=== PATIENT | male | born 1975 | race African-American/Black ===

== ENCOUNTER 2016-08-18 01:43 | Emergency (ER) | payer SELFPAY ==
[~2016-08-18] VITALS: Ht 167.6 cm; Wt 81.6 kg
[2016-08-18] MEDS ORDERED: LITH8SOL6 PO (02:40)
[2016-08-18] MEDS ORDERED: RISP0.2517 PO (02:40)
[2016-08-18] MEDS ORDERED: TRAZ5POW MC (02:40)
[2016-08-18 03:29] VITALS: BP 211/135
--- OUTSIDE RECORDS SUMMARY | 2016-08-26 23:37 | XMS REPORT ---
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
--- OUTSIDE RECORDS SUMMARY | 2016-08-26 23:37 | XMS REPORT ---
Author Author DEVIN GOMEZ [facility] [employer] Address Unknown Phone Unavailable Care Team Providers Care Building Energy Consultant Name Role Phone DEVIN GOMEZ Unavailable Allergies No Known Allergies Problems Problem [...]
--- OUTSIDE RECORDS SUMMARY | 2016-08-26 23:37 | XMS REPORT ---
Author Author DEVIN GOMEZ [facility] [employer] Address Unknown Phone Unavailable Care Team Providers Care Hardening Machine Operator Helper Name Role Phone DEVIN GOMEZ Unavailable Allergies [...] examination for venereal disease V74.5 Active Medications Medication Code System Code Instructions Start Date End Date Status Dosage lithium NDC 0 300 mg orally Once a day with dinner Mar 30, 2014 3 capsule [place] Carbonate NDC [address]-24 300 MG Orally Three times a day 1 capsule Results No Known Results Summary Purpose [employer] Submission
--- OUTSIDE RECORDS SUMMARY | 2016-08-26 23:37 | XMS REPORT | Continuity of Care Document ---
Author Author [facility] Address Unknown Phone Unavailable Allergies Active Description Code Type Severity Reaction Onset Reported/Identified Relationship to Patient Clinical Status Yes codeine Drug Allergy N/A N/A 05/16/2008 Yes codeine Drug Allergy 05/16/2008 Yes lisinopril Drug Allergy 09/02/2008 Yes lisinopril Drug Allergy N/A N/A 08/05/2013 Medications Problems Date Dx Coded Attending Type Code Diagnosis Diagnosed By 11/02/2007 SUSI GODFREY DO 401.1 HYPERTENSION, BENIGN ESSENTIAL 11/02/2007 401.1 HYPERTENSION, BENIGN ESSENTIAL 11/02/2007 CHIKIS CHILDERS DO 401.1 HYPERTENSION, BENIGN ESSENTIAL 11/02/2007 SUSI GODFREY DO 401.1 HYPERTENSION, BENIGN ESSENTIAL 11/02/2007 SUSI GODFREY DO 401.1 HYPERTENSION, BENIGN ESSENTIAL 11/02/2007 401.1 HYPERTENSION, BENIGN ESSENTIAL 11/02/2007 401.1 HYPERTENSION, BENIGN ESSENTIAL 11/02/2007 401.1 HYPERTENSION, BENIGN ESSENTIAL 11/02/2007 401.1 HYPERTENSION, BENIGN ESSENTIAL 11/02/2007 401.1 HYPERTENSION, BENIGN ESSENTIAL 11/02/2007 MARILU AMANDA APRN 401.1 HYPERTENSION, BENIGN ESSENTIAL 11/02/2007 NAM PATTON APRN 401.1 HYPERTENSION, BENIGN ESSENTIAL 11/02/2007 NAM PATTON APRN 401.1 HYPERTENSION, BENIGN ESSENTIAL 11/02/2007 NAM PATTON APRN 401.1 HYPERTENSION, BENIGN ESSENTIAL 11/02/2007 RINA MINOR MD 401.1 HYPERTENSION, BENIGN ESSENTIAL 11/02/2007 [place] GRIGGS APRN 401.1 HYPERTENSION, BENIGN ESSENTIAL 11/02/2007 [place] GRIGGS APRN 401.1 HYPERTENSION, BENIGN ESSENTIAL 11/02/2007 [place] GRIGGS APRN 401.1 HYPERTENSION, BENIGN ESSENTIAL 05/16/2008 SUSI GODFREY DO 603.9 HYDROCELE UNSPECIFIED 05/16/2008 603.9 HYDROCELE UNSPECIFIED 05/16/2008 CHIKIS CHILDERS DO K 603.9 HYDROCELE UNSPECIFIED 05/16/2008 SUSI GODFREY DO F 603.9 HYDROCELE UNSPECIFIED 05/16/2008 SUSI GODFREY DO F 603.9 HYDROCELE UNSPECIFIED 05/16/2008 603.9 HYDROCELE UNSPECIFIED 05/16/2008 603.9 HYDROCELE UNSPECIFIED 05/16/2008 603.9 HYDROCELE UNSPECIFIED 05/16/2008 603.9 HYDROCELE UNSPECIFIED 05/16/2008 603.9 HYDROCELE UNSPECIFIED 05/16/2008 MARILU AMANDA APRN 603.9 HYDROCELE UNSPECIFIED 05/16/2008 NAM PATTON APRN 603.9 HYDROCELE UNSPECIFIED 05/16/2008 NAM PATTON APRN 603.9 HYDROCELE UNSPECIFIED 05/16/2008 NAM PATTON APRN 603.9 HYDROCELE UNSPECIFIED 05/16/2008 RINA MINOR MD 603.9 HYDROCELE UNSPECIFIED 05/16/2008 ANSONJOSELINE BRYANT, [place] 603.9 HYDROCELE UNSPECIFIED 05/16/2008 ANSONJOSELINE BRYANT, [place] 603.9 HYDROCELE UNSPECIFIED 05/16/2008 ANSON BRYANT [place] 603.9 HYDROCELE UNSPECIFIED 08/17/2008 SUSI GODFREY DO F 789.00 ABDOMINAL PAIN UNSPECIFIED SITE 08/17/2008 789.00 ABDOMINAL PAIN UNSPECIFIED SITE 08/17/2008 CHIKIS CHILDERS DO 789.00 ABDOMINAL PAIN UNSPECIFIED SITE 08/17/2008 SUSI GODFREY DO F 789.00 ABDOMINAL PAIN UNSPECIFIED SITE 08/17/2008 SUSI GODFREY DO F 789.00 ABDOMINAL PAIN UNSPECIFIED SITE 08/17/2008 789.00 ABDOMINAL PAIN UNSPECIFIED SITE 08/17/2008 789.00 ABDOMINAL PAIN UNSPECIFIED SITE 08/17/2008 789.00 ABDOMINAL PAIN UNSPECIFIED SITE 08/17/2008 789.00 ABDOMINAL PAIN UNSPECIFIED SITE 08/17/2008 789.00 ABDOMINAL PAIN UNSPECIFIED SITE 08/17/2008 MARILU AMANDA APRN 789.00 ABDOMINAL PAIN UNSPECIFIED SITE 08/17/2008 NAM PATTON APRN 789.00 ABDOMINAL PAIN UNSPECIFIED SITE 08/17/2008 NAM PATTON APRN 789.00 ABDOMINAL PAIN UNSPECIFIED SITE 08/17/2008 NAM PATTON APRN 789.00 ABDOMINAL PAIN UNSPECIFIED SITE 08/17/2008 RINA MINOR MD 789.00 ABDOMINAL PAIN UNSPECIFIED SITE 08/17/2008 ANSONORLANDO TREVIZO APRN 789.00 ABDOMINAL PAIN UNSPECIFIED SITE 08/17/2008 ANSONJESSICA TREVIZO APRNETTE 789.00 ABDOMINAL PAIN UNSPECIFIED SITE 08/17/2008 ANSON JESSICA BRYANTETTE 789.00 ABDOMINAL PAIN UNSPECIFIED SITE 12/07/2008 SUSI GODFREY DO 300.00 AN ANXIETY UNSPEC 12/07/2008 300.00 AN ANXIETY UNSPEC 12/07/2008 CHIKIS CHILDERS DO 300.00 AN ANXIETY UNSPEC 12/07/2008 SUSI GODFREY DO 300.00 AN ANXIETY UNSPEC 12/07/2008 SUSI GODFREY DO 300.00 AN ANXIETY UNSPEC 12/07/2008 300.00 AN ANXIETY UNSPEC 12/07/2008 300.00 AN ANXIETY UNSPEC 12/07/2008 300.00 AN ANXIETY UNSPEC 12/07/2008 300.00 AN ANXIETY UNSPEC 12/07/2008 300.00 AN ANXIETY UNSPEC 12/07/2008 MARILU AMANDA APRN 300.00 AN ANXIETY UNSPEC 12/07/2008 NAM PATTON APRN 300.00 AN ANXIETY UNSPEC 12/07/2008 NAM PATTON APRN 300.00 AN ANXIETY UNSPEC 12/07/2008 NAM PATTON APRN 300.00 AN ANXIETY UNSPEC 12/07/2008 RINA MINOR MD 300.00 AN ANXIETY UNSPEC 12/07/2008 [place] GRIGGS APRN 300.00 AN ANXIETY UNSPEC 12/07/2008 [place] GRIGGS APRN 300.00 AN ANXIETY UNSPEC 12/07/2008 [place] GRIGGS APRN 300.00 AN ANXIETY UNSPEC 01/19/2009 SUSI GODFREY DO 296.40 MO BIPOLAR MANIC UNSPECIFIED 01/19/2009 296.40 MO BIPOLAR MANIC UNSPECIFIED 01/19/2009 CHIKIS CHILDERS DO 296.40 MO BIPOLAR MANIC UNSPECIFIED 01/19/2009 SUSI GODFREY DO 296.40 MO BIPOLAR MANIC UNSPECIFIED 01/19/2009 SUSI GODFREY DO 296.40 MO BIPOLAR MANIC UNSPECIFIED 01/19/2009 296.40 MO BIPOLAR MANIC UNSPECIFIED 01/19/2009 296.40 MO BIPOLAR MANIC UNSPECIFIED 01/19/2009 296.40 MO BIPOLAR MANIC UNSPECIFIED 01/19/2009 296.40 MO BIPOLAR MANIC UNSPECIFIED 01/19/2009 296.40 MO BIPOLAR MANIC UNSPECIFIED 01/19/2009 MARILU AMANDA APRN 296.40 MO BIPOLAR MANIC UNSPECIFIED 01/19/2009 NAM PATTON APRN 296.40 MO BIPOLAR MANIC UNSPECIFIED 01/19/2009 NAM PATTON APRN 296.40 MO BIPOLAR MANIC UNSPECIFIED 01/19/2009 NAM PATTON APRN 296.40 MO BIPOLAR MANIC UNSPECIFIED 01/19/2009 RINA MINOR MD 296.40 MO BIPOLAR MANIC UNSPECIFIED 01/19/2009 [place] GRIGGS APRN 296.40 MO BIPOLAR MANIC UNSPECIFIED 01/19/2009 ANSON BRYANT [place] 296.40 MO BIPOLAR MANIC UNSPECIFIED 01/19/2009 ANSONJOSELINE BRYANT [place] 296.40 MO BIPOLAR MANIC UNSPECIFIED 02/07/2009 SUSI GODFREY DO 296.90 MO MOOD DIS NOS 02/07/2009 296.90 MO MOOD DIS NOS 02/07/2009 CHIKIS CHILDERS DO 296.90 MO MOOD DIS NOS 02/07/2009 SUSI GODFREY DO 296.90 MO MOOD DIS NOS 02/07/2009 SUSI GODFREY DO 296.90 MO MOOD DIS NOS 02/07/2009 296.90 MO MOOD DIS NOS 02/07/2009 296.90 MO MOOD DIS NOS 02/07/2009 296.90 MO MOOD DIS NOS 02/07/2009 296.90 MO MOOD DIS NOS 02/07/2009 296.90 MO MOOD DIS NOS 02/07/2009 MARILU AMANDA APRN 296.90 MO MOOD DIS NOS 02/07/2009 NAM PATTON APRN 296.90 MO MOOD DIS NOS 02/07/2009 NAM PATTON APRN 296.90 MO MOOD DIS NOS 02/07/2009 NAM PATTON APRN 296.90 MO MOOD DIS NOS 02/07/2009 RINA MINOR MD 296.90 MO MOOD DIS NOS 02/07/2009 ANSON BRICK WHEELER, [place] 296.90 MO MOOD DIS NOS 02/07/2009 ANSON BRICK WHEELER, [place] 296.90 MO MOOD DIS NOS 02/07/2009 ANSON BRICK WHEELER, [place] 296.90 MO MOOD DIS NOS 05/01/2009 SUSI GODFREY DO V58.69 MEDICATION HIGH RISK 05/01/2009 V58.69 MEDICATION HIGH RISK 05/01/2009 CHIKIS CHILDERS DO V58.69 MEDICATION HIGH RISK 05/01/2009 SUSI GODFREY DO V58.69 MEDICATION HIGH RISK 05/01/2009 SUSI GODFREY DO V58.69 MEDICATION HIGH RISK 05/01/2009 V58.69 MEDICATION HIGH RISK 05/01/2009 V58.69 MEDICATION HIGH RISK 05/01/2009 V58.69 MEDICATION HIGH RISK 05/01/2009 V58.69 MEDICATION HIGH RISK 05/01/2009 V58.69 MEDICATION HIGH RISK 05/01/2009 MARILU AMANDA APRN V58.69 MEDICATION HIGH RISK 05/01/2009 NAM PATTON APRN V58.69 MEDICATION HIGH RISK 05/01/2009 NAM PATTON APRN V58.69 MEDICATION HIGH RISK 05/01/2009 NAM PATTON APRN V58.69 MEDICATION HIGH RISK 05/01/2009 RINA MINOR MD V58.69 MEDICATION HIGH RISK 05/01/2009 ANSON BRICK WHEELER, [place] V58.69 MEDICATION HIGH RISK 05/01/2009 ANSON BRICK WHEELER, [place] V58.69 MEDICATION HIGH RISK 05/01/2009 ANSON BRICK WHEELER, [place] V58.69 MEDICATION HIGH RISK 11/18/2009 SUSI GODFREY DO 307.47 SI DYSSOMNIA NOS 11/18/2009 307.47 SI DYSSOMNIA NOS 11/18/2009 CHIKIS CHILDERS DO 307.47 SI DYSSOMNIA NOS 11/18/2009 SUSI GODFREY DO 307.47 SI DYSSOMNIA NOS 11/18/2009 SUSI GODFREY DO 307.47 SI DYSSOMNIA NOS 11/18/2009 307.47 SI DYSSOMNIA NOS 11/18/2009 307.47 SI DYSSOMNIA NOS 11/18/2009 307.47 SI DYSSOMNIA NOS 11/18/2009 307.47 SI DYSSOMNIA NOS 11/18/2009 307.47 SI DYSSOMNIA NOS 11/18/2009 MARILU AMANDA APRN 307.47 SI DYSSOMNIA NOS 11/18/2009 NAM PATTON APRN 307.47 SI DYSSOMNIA NOS 11/18/2009 NAM PATTON APRN 307.47 SI DYSSOMNIA NOS 11/18/2009 NAM PATTON APRN 307.47 SI DYSSOMNIA NOS 11/18/2009 RINA MINOR MD 307.47 SI DYSSOMNIA NOS 11/18/2009 ANSON BRICK WHEELER, [place] 307.47 SI DYSSOMNIA NOS 11/18/2009 ANSON BRICK WHEELER, [place] 307.47 SI DYSSOMNIA NOS 11/18/2009 ANSON BRICK WHEELER, [place] 307.47 SI DYSSOMNIA NOS 05/23/2010 SUSI GODFREY DO F 477.9 RHINITIS 05/23/2010 SUSI GODFREY DO F 785.6 LYMPH NODES ENLARGEMENT 05/23/2010 477.9 RHINITIS 05/23/2010 785.6 LYMPH NODES ENLARGEMENT 05/23/2010 CHILDERS CHIKIS LEAL K 477.9 RHINITIS 05/23/2010 CHILDERS DOCHIKIS K 785.6 LYMPH NODES ENLARGEMENT 05/23/2010 SUSI GODFREY DO F 477.9 RHINITIS 05/23/2010 SUSI GODFREY DO F 785.6 LYMPH NODES ENLARGEMENT 05/23/2010 SUSI GODFREY DO F 477.9 RHINITIS 05/23/2010 SUSI GODFREY DO F 785.6 LYMPH NODES ENLARGEMENT 05/23/2010 477.9 RHINITIS 05/23/2010 785.6 LYMPH NODES ENLARGEMENT 05/23/2010 477.9 RHINITIS 05/23/2010 785.6 LYMPH NODES ENLARGEMENT 05/23/2010 477.9 RHINITIS 05/23/2010 785.6 LYMPH NODES ENLARGEMENT 05/23/2010 477.9 RHINITIS 05/23/2010 785.6 LYMPH NODES ENLARGEMENT 05/23/2010 477.9 RHINITIS 05/23/2010 785.6 LYMPH NODES ENLARGEMENT 05/23/2010 MARILU AMANDA APRN T 477.9 RHINITIS 05/23/2010 MARILU AMANDA APRN T 785.6 LYMPH NODES ENLARGEMENT 05/23/2010 NAM PATTON APRN D 477.9 RHINITIS 05/23/2010 POOJA BRICK WHEELER, NAM D 785.6 LYMPH NODES ENLARGEMENT 05/23/2010 POOJA BRICK WHEELERNAM Simpson D 477.9 RHINITIS 05/23/2010 POOJA BRICK WHEELER, NAM D 785.6 LYMPH NODES ENLARGEMENT 05/23/2010 POOJA BRICK WHEELER, NAM D 477.9 RHINITIS 05/23/2010 NAM PATTON APRN D 785.6 LYMPH NODES ENLARGEMENT 05/23/2010 RINA MINOR MD 477.9 RHINITIS 05/23/2010 RINA MINOR MD 785.6 LYMPH NODES ENLARGEMENT 05/23/2010 ANSON BRICK WHEELER, [place] 477.9 RHINITIS 05/23/2010 ANSON BRICK WHEELER, [place] 785.6 LYMPH NODES ENLARGEMENT 05/23/2010 ANSON BRICK WHEELER, [place] 477.9 RHINITIS 05/23/2010 ANSON BRICK WHEELER, [place] 785.6 LYMPH NODES ENLARGEMENT 05/23/2010 ANSON BRICK WHEELER, [place] 477.9 RHINITIS 05/23/2010 ANSON BRICK WHEELER, [place] 785.6 LYMPH NODES ENLARGEMENT 05/28/2010 SUSI GODFREY DO 300.4 DYSTHYMIC DISORDER 05/28/2010 300.4 DYSTHYMIC DISORDER 05/28/2010 CHIKIS CHILDERS DO 300.4 DYSTHYMIC DISORDER 05/28/2010 SUSI GODFREY DO 300.4 DYSTHYMIC DISORDER 05/28/2010 SUSI GODFREY DO 300.4 DYSTHYMIC DISORDER 05/28/2010 300.4 DYSTHYMIC DISORDER 05/28/2010 300.4 DYSTHYMIC DISORDER 05/28/2010 300.4 DYSTHYMIC DISORDER 05/28/2010 300.4 DYSTHYMIC DISORDER 05/28/2010 300.4 DYSTHYMIC DISORDER 05/28/2010 MARILU AMANDA APRN 300.4 DYSTHYMIC DISORDER 05/28/2010 NAM PATTON APRN 300.4 DYSTHYMIC DISORDER 05/28/2010 NAM PATTON APRN 300.4 DYSTHYMIC DISORDER 05/28/2010 NAM PATTON APRN 300.4 DYSTHYMIC DISORDER 05/28/2010 RINA MINOR MD 300.4 DYSTHYMIC DISORDER 05/28/2010 [place] GRIGGS APRN 300.4 DYSTHYMIC DISORDER 05/28/2010 [place] GRIGGS APRN 300.4 DYSTHYMIC DISORDER 05/28/2010 [place] GRIGGS APRN 300.4 DYSTHYMIC DISORDER 06/28/2010 SUSI GODFREY DO 296.60 MO BIPOLAR I MIXED UNSPECIFIED 06/28/2010 296.60 MO BIPOLAR I MIXED UNSPECIFIED 06/28/2010 CHIKIS CHILDERS DO 296.60 MO BIPOLAR I MIXED UNSPECIFIED 06/28/2010 SUSI GODFREY DO F 296.60 MO BIPOLAR I MIXED UNSPECIFIED 06/28/2010 SUSI GODFREY DO F 296.60 MO BIPOLAR I MIXED UNSPECIFIED 06/28/2010 296.60 MO BIPOLAR I MIXED UNSPECIFIED 06/28/2010 296.60 MO BIPOLAR I MIXED UNSPECIFIED 06/28/2010 296.60 MO BIPOLAR I MIXED UNSPECIFIED 06/28/2010 296.60 MO BIPOLAR I MIXED UNSPECIFIED 06/28/2010 296.60 MO BIPOLAR I MIXED UNSPECIFIED 06/28/2010 MARILU AMANDA APRN 296.60 MO BIPOLAR I MIXED UNSPECIFIED 06/28/2010 NAM PATTON APRN 296.60 MO BIPOLAR I MIXED UNSPECIFIED 06/28/2010 NAM PATTON APRN 296.60 MO BIPOLAR I MIXED UNSPECIFIED 06/28/2010 NAM PATTON APRN 296.60 MO BIPOLAR I MIXED UNSPECIFIED 06/28/2010 RINA MINOR MD 296.60 MO BIPOLAR I MIXED UNSPECIFIED 06/28/2010 [place] GRIGGS APRN 296.60 MO BIPOLAR I MIXED UNSPECIFIED 06/28/2010 [place] GRIGGS APRN 296.60 MO BIPOLAR I MIXED UNSPECIFIED 06/28/2010 [place] GRIGGS APRN 296.60 MO BIPOLAR I MIXED UNSPECIFIED 09/21/2010 SUSI GODFREY DO F 296.50 MO BIPOLAR I DEPRESSED UNSPECIFIED 09/21/2010 296.50 MO BIPOLAR I DEPRESSED UNSPECIFIED 09/21/2010 CHIKIS CHILDERS DO 296.50 MO BIPOLAR I DEPRESSED UNSPECIFIED 09/21/2010 SUSI GODFREY DO 296.50 MO BIPOLAR I DEPRESSED UNSPECIFIED 09/21/2010 SUSI GODFREY DO 296.50 MO BIPOLAR I DEPRESSED UNSPECIFIED 09/21/2010 296.50 MO BIPOLAR I DEPRESSED UNSPECIFIED 09/21/2010 296.50 MO BIPOLAR I DEPRESSED UNSPECIFIED 09/21/2010 296.50 MO BIPOLAR I DEPRESSED UNSPECIFIED 09/21/2010 296.50 MO BIPOLAR I DEPRESSED UNSPECIFIED 09/21/2010 296.50 MO BIPOLAR I DEPRESSED UNSPECIFIED 09/21/2010 MARILU AMANDA APRN 296.50 MO BIPOLAR I DEPRESSED UNSPECIFIED 09/21/2010 NAM PATTON APRN 296.50 MO BIPOLAR I DEPRESSED UNSPECIFIED 09/21/2010 NAM PATTON APRN 296.50 MO BIPOLAR I DEPRESSED UNSPECIFIED 09/21/2010 NAM PATTON APRN 296.50 MO BIPOLAR I DEPRESSED UNSPECIFIED 09/21/2010 RINA MINOR MD 296.50 MO BIPOLAR I DEPRESSED UNSPECIFIED 09/21/2010 [place] GRIGGS APRN 296.50 MO BIPOLAR I DEPRESSED UNSPECIFIED 09/21/2010 [place] GRIGGS APRN 296.50 MO BIPOLAR I DEPRESSED UNSPECIFIED 09/21/2010 [place] GRIGGS APRN 296.50 MO BIPOLAR I DEPRESSED UNSPECIFIED 01/22/2011 SUSI GODFREY DO 462 PHARYNGITIS ACUTE 01/22/2011 462 PHARYNGITIS ACUTE 01/22/2011 CHIKIS CHILDERS DO 462 PHARYNGITIS ACUTE 01/22/2011 SUSI GODFREY DO 462 PHARYNGITIS ACUTE 01/22/2011 SUSI GODFREY DO 462 PHARYNGITIS ACUTE 01/22/2011 462 PHARYNGITIS ACUTE 01/22/2011 462 PHARYNGITIS ACUTE 01/22/2011 462 PHARYNGITIS ACUTE 01/22/2011 462 PHARYNGITIS ACUTE 01/22/2011 462 PHARYNGITIS ACUTE 01/22/2011 MARILU AMANDA APRN 462 PHARYNGITIS ACUTE 01/22/2011 NAM PATTON APRN 462 PHARYNGITIS ACUTE 01/22/2011 NAM PATTON APRN 462 PHARYNGITIS ACUTE 01/22/2011 NAM PATTON APRN 462 PHARYNGITIS ACUTE 01/22/2011 RINA MINOR MD 462 PHARYNGITIS ACUTE 01/22/2011 ANSON BRICK WHEELER, [place] 462 PHARYNGITIS ACUTE 01/22/2011 ANSON BRICK WHEELER, [place] 462 PHARYNGITIS ACUTE 01/22/2011 ANSON BRICK WHEELER, [place] 462 PHARYNGITIS ACUTE 06/21/2011 SUSI GODFREY DO 210.4 BENIGN NEOPLASM OF OTHER AND UNSPECIFIED PARTS OF MOUTH 06/21/2011 210.4 BENIGN NEOPLASM OF OTHER AND UNSPECIFIED PARTS OF MOUTH 06/21/2011 CHIKIS CHILDERS DO 210.4 BENIGN NEOPLASM OF OTHER AND UNSPECIFIED PARTS OF MOUTH 06/21/2011 SUSI GODFREY DO 210.4 BENIGN NEOPLASM OF OTHER AND UNSPECIFIED PARTS OF MOUTH 06/21/2011 SUSI GODFREY DO 210.4 BENIGN NEOPLASM OF OTHER AND UNSPECIFIED PARTS OF MOUTH 06/21/2011 210.4 BENIGN NEOPLASM OF OTHER AND UNSPECIFIED PARTS OF MOUTH 06/21/2011 210.4 BENIGN NEOPLASM OF OTHER AND UNSPECIFIED PARTS OF MOUTH 06/21/2011 210.4 BENIGN NEOPLASM OF OTHER AND UNSPECIFIED PARTS OF MOUTH 06/21/2011 210.4 BENIGN NEOPLASM OF OTHER AND UNSPECIFIED PARTS OF MOUTH 06/21/2011 210.4 BENIGN NEOPLASM OF OTHER AND UNSPECIFIED PARTS OF MOUTH 06/21/2011 MARILU AMANDA APRN 210.4 BENIGN NEOPLASM OF OTHER AND UNSPECIFIED PARTS OF MOUTH 06/21/2011 NAM PATTON APRN 210.4 BENIGN NEOPLASM OF OTHER AND UNSPECIFIED PARTS OF MOUTH 06/21/2011 NAM PATTON APRN 210.4 BENIGN NEOPLASM OF OTHER AND UNSPECIFIED PARTS OF MOUTH 06/21/2011 NAM PATTON APRN 210.4 BENIGN NEOPLASM OF OTHER AND UNSPECIFIED PARTS OF MOUTH 06/21/2011 RINA MINOR MD 210.4 BENIGN NEOPLASM OF OTHER AND UNSPECIFIED PARTS OF MOUTH 06/21/2011 ANSON BRICK WHEELER, [place] 210.4 BENIGN NEOPLASM OF OTHER AND UNSPECIFIED PARTS OF MOUTH 06/21/2011 ANSON BRICK WHEELER, [place] 210.4 BENIGN NEOPLASM OF OTHER AND UNSPECIFIED PARTS OF MOUTH 06/21/2011 ANSON BRICK WHEELER, [place] 210.4 BENIGN NEOPLASM OF OTHER AND UNSPECIFIED PARTS OF MOUTH 02/27/2012 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 02/27/2012 787.20 DYSPHAGIA UNSPECIFIED 02/27/2012 ALVARADO LEAL CHIKIS K 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 02/27/2012 CHILDERS DO, CHIKIS K 787.20 DYSPHAGIA UNSPECIFIED 02/27/2012 WERKAREN DO, SUSI F 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 02/27/2012 WERDER DO, SUSI F 787.20 DYSPHAGIA UNSPECIFIED 02/27/2012 WERDER DO, SUSI F 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 02/27/2012 WERDER DO, SUSI F 787.20 DYSPHAGIA UNSPECIFIED 02/27/2012 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 02/27/2012 787.20 DYSPHAGIA UNSPECIFIED 02/27/2012 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 02/27/2012 787.20 DYSPHAGIA UNSPECIFIED 02/27/2012 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 02/27/2012 787.20 DYSPHAGIA UNSPECIFIED 02/27/2012 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 02/27/2012 787.20 DYSPHAGIA UNSPECIFIED 02/27/2012 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 02/27/2012 787.20 DYSPHAGIA UNSPECIFIED 02/27/2012 MARILU AMANDA APRN 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 02/27/2012 MARILU AMANDA APRN 787.20 DYSPHAGIA UNSPECIFIED 02/27/2012 NAM PATTON APRN 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 02/27/2012 NAM PATTON APRN 787.20 DYSPHAGIA UNSPECIFIED 02/27/2012 NAM PATTON APRN 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 02/27/2012 NAM PATTON APRN 787.20 DYSPHAGIA UNSPECIFIED 02/27/2012 NAM PATTON APRN 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 02/27/2012 NAM PATTON APRN 787.20 DYSPHAGIA UNSPECIFIED 02/27/2012 RINA MINOR MD 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 02/27/2012 RINA MINOR MD 787.20 DYSPHAGIA UNSPECIFIED 02/27/2012 [place] GRIGGS APRN 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 02/27/2012 ANSON BRICK WHEELER, [place] 787.20 DYSPHAGIA UNSPECIFIED 02/27/2012 ANSON BRICK WHEELER, [place] 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 02/27/2012 ANSON BRICK WHEELER, [place] 787.20 DYSPHAGIA UNSPECIFIED 02/27/2012 ANSON BRICK WHEELER, [place] 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 02/27/2012 ANSON BRICK WHEELER, [place] 787.20 DYSPHAGIA UNSPECIFIED 03/20/2012 CHILDERS DO, CHIKIS K 315.39 SPEECH DELAY 03/20/2012 CHILDERS DO, CHIKIS K 786.09 SNORING 03/20/2012 WERDER DO, SUSI F 315.39 SPEECH DELAY 03/20/2012 WERDER DO, SUSI F 786.09 SNORING 03/20/2012 WERDER DO, SUSI F 315.39 SPEECH DELAY 03/20/2012 WERDER DO, SUSI F 786.09 SNORING 03/20/2012 315.39 SPEECH DELAY 03/20/2012 786.09 SNORING 03/20/2012 315.39 SPEECH DELAY 03/20/2012 786.09 SNORING 03/20/2012 315.39 SPEECH DELAY 03/20/2012 786.09 SNORING 03/20/2012 315.39 SPEECH DELAY 03/20/2012 786.09 SNORING 03/20/2012 315.39 SPEECH DELAY 03/20/2012 786.09 SNORING 03/20/2012 MARILU AMANDA APRN 315.39 SPEECH DELAY 03/20/2012 MARILU AMANDA APRN 786.09 SNORING 03/20/2012 NAM PATTON APRN 315.39 SPEECH DELAY 03/20/2012 NAM PATTON APRN 786.09 SNORING 03/20/2012 NAM PATTON APRN D 315.39 SPEECH DELAY 03/20/2012 NAM PATTON APRN D 786.09 SNORING 03/20/2012 NAM PATTON APRN D 315.39 SPEECH DELAY 03/20/2012 NAM PATTON APRN D 786.09 SNORING 03/20/2012 RINA MINOR MD 315.39 SPEECH DELAY 03/20/2012 RINA MINOR MD 786.09 SNORING 03/20/2012 [place] GRIGGS APRN 315.39 SPEECH DELAY 03/20/2012 ANSON BRICK WHEELER, [place] 786.09 SNORING 03/20/2012 ANSON BRICK WHEELER, [place] 315.39 SPEECH DELAY 03/20/2012 ANSON BRICK WHEELER, [place] 786.09 SNORING 03/20/2012 ANSON BRICK WHEELER, [place] 315.39 SPEECH DELAY 03/20/2012 ANSON BRICK WHEELER, [place] 786.09 SNORING 06/16/2012 296.66 BIPOLAR I DISORDER MOST RECENT EPISODE (OR CURRENT) MIXED IN FULL REMISSION 06/16/2012 296.66 BIPOLAR I DISORDER MOST RECENT EPISODE (OR CURRENT) MIXED IN FULL REMISSION 06/16/2012 296.66 BIPOLAR I DISORDER MOST RECENT EPISODE (OR CURRENT) MIXED IN FULL REMISSION 06/16/2012 296.66 BIPOLAR I DISORDER MOST RECENT EPISODE (OR CURRENT) MIXED IN FULL REMISSION 06/16/2012 296.66 BIPOLAR I DISORDER MOST RECENT EPISODE (OR CURRENT) MIXED IN FULL REMISSION 06/16/2012 MARILU AMANDA APRN 296.66 BIPOLAR I DISORDER MOST RECENT EPISODE ( OR CURRENT) MIXED IN FULL REMISSION 06/16/2012 NAM PATTON APRN 296.66 BIPOLAR I DISORDER MOST RECENT EPISODE (OR CURRENT) MIXED IN FULL REMISSION 06/16/2012 NAM PATTON APRN 296.66 BIPOLAR I DISORDER MOST RECENT EPISODE (OR CURRENT) MIXED IN FULL REMISSION 06/16/2012 NAM PATTON APRN 296.66 BIPOLAR I DISORDER MOST RECENT EPISODE (OR CURRENT) MIXED IN FULL REMISSION 06/16/2012 RINA MINOR MD 296.66 BIPOLAR I DISORDER MOST RECENT EPISODE (OR CURRENT) MIXED IN FULL REMISSION 06/16/2012 ORLANDO GRIGGS APRN 296.66 BIPOLAR I DISORDER MOST RECENT EPISODE ( OR CURRENT) MIXED IN FULL REMISSION 06/16/2012 OR[place]O GRIGGS APRN 296.66 BIPOLAR I DISORDER MOST RECENT EPISODE ( OR CURRENT) MIXED IN FULL REMISSION 06/16/2012 OR[place]O GRIGGS APRN 296.66 BIPOLAR I DISORDER MOST RECENT EPISODE ( OR CURRENT) MIXED IN FULL REMISSION 07/15/2012 301.0 PARANOID PERSONALITY DISORDER 07/15/2012 301.0 PARANOID PERSONALITY DISORDER 07/15/2012 MARILU AMANDA APRN 301.0 PARANOID PERSONALITY DISORDER 07/15/2012 NAM PATTON APRN 301.0 PARANOID PERSONALITY DISORDER 07/15/2012 NAM PATTON APRN 301.0 PARANOID PERSONALITY DISORDER 07/15/2012 NAM PATTON APRN 301.0 PARANOID PERSONALITY DISORDER 07/15/2012 RINA MINOR MD 301.0 PARANOID PERSONALITY DISORDER 07/15/2012 ANSON BRICK WHEELER, [place] 301.0 PARANOID PERSONALITY DISORDER 07/15/2012 ANSON BRICK WHEELER, [place] 301.0 PARANOID PERSONALITY DISORDER 07/15/2012 ANSON BRICK WHEELER, [place] 301.0 PARANOID PERSONALITY DISORDER 09/18/2012 MARILU AMANDA APRN V74.5 STD SCREEN 09/18/2012 NAM PATTON APRN V74.5 STD SCREEN 09/18/2012 NAM PATTON APRN V74.5 STD SCREEN 09/18/2012 NAM PATTON APRN V74.5 STD SCREEN 09/18/2012 RINA MINOR MD V74.5 STD SCREEN 09/18/2012 ANSON BRICK WHEELER, [place] V74.5 STD SCREEN 09/18/2012 [place] GRIGGS APRN V74.5 STD SCREEN 09/18/2012 [place] Simpson V74.5 STD SCREEN 09/24/2012 MARILU AMANDA APRN 719.45 PAIN IN JOINT INVOLVING PELVIC REGION AND THIGH 09/24/2012 NAM PATTON APRN 719.45 PAIN IN JOINT INVOLVING PELVIC [employer]ION AND THIGH 09/24/2012 NAM PATTON APRN 719.45 PAIN IN JOINT INVOLVING PELVIC [employer]ION AND THIGH 09/24/2012 NAM PATTON APRN 719.45 PAIN IN JOINT INVOLVING PELVIC [employer]ION AND THIGH 09/24/2012 RINA MINOR MD 719.45 PAIN IN JOINT INVOLVING PELVIC [employer]ION AND THIGH 09/24/2012 OR[place]O GRIGGS APRN 719.45 PAIN IN JOINT INVOLVING PELVIC [employer]ION AND THIGH 09/24/2012 [place] GRIGGS APRN 719.45 PAIN IN JOINT INVOLVING PELVIC [employer] AND THIGH 09/24/2012 [place] GRIGGS APRN 719.45 PAIN IN JOINT INVOLVING PELVIC [employer]ION AND THIGH 10/02/2012 MARILU AMANDA APRN 719.45 PAIN- HIP 10/02/2012 NAM PATTON APRN 719.45 PAIN- HIP 10/02/2012 NAM PATTON APRN 719.45 PAIN- HIP 10/02/2012 NAM PATTON APRN 719.45 PAIN- HIP 10/02/2012 RINA MINOR MD 719.45 PAIN- HIP 10/02/2012 [place] GRIGGS APRN 719.45 PAIN- HIP 10/02/2012 [place] GRIGGS APRN 719.45 PAIN- HIP 10/02/2012 [place] GRIGGS APRN 719.45 PAIN- HIP 06/21/2014 [place] GRIGGS APRN 296.64 MO BIPOLAR I MIXED W PSYCHOTIC BEHAVIOR Procedures Code Description Performed By Performed On DARRYL UP 02/27/2012 89635 ROUTINE VENIPUNCTURE 05/04/2012 69002 UA LONG DIP 05/04 45842 CBC 05/04/2012 78085 CMP 05/04/2012 [id number] GFR CALC (RESULT ONLY) 05/04/2012 19521 LITHIUM 2012 80003 TSH 05/04/2012 28441 ROUTINE VENIPUNCTURE 05/21/2012 29443 UA LONG DIP 05/21 06211 CREATININE 2012 [id number] GFR CALC (RESULT ONLY) 05/22/2012 54680 LITHIUM 2012 62836 PSYTX PT&/FAMILY 45 MINUTES 06/18/2012 68928 THERAPUTIC INJ SQ/IM 07/06/2012 J2930 SOLUMEDROL INJ 26669 PSYTX PT&/FAMILY 30 MINUTES 07/21/2012 18287 ROUTINE VENIPUNCTURE 08/19/2012 91844 PSYTX PT&/FAMILY 30 MINUTES 08/21/2012 34177 XRAY HIP RIGHT UNILATERAL MIN 2 VIEWS 09/24/2012 32396 ROUTINE VENIPUNCTURE 08/05/2013 [id number] GFR CALC (RESULT ONLY) 08/05/2013 18451 BMP 08/05/2013 95472 LITHIUM 2013 Results Encounters ACCT No. Visit Date/Time Discharge Status Pt. Type Provider Facility Loc./Unit Complaint [id number] 06/21/2014 13:37:00 06/21/2014 23: 59:59 CLS Outpatient [place] GRIGGS APRN [id number] 09/09/2013 12:03:00 09/09/2013 23: 59:59 CLS Outpatient JESSICA GRIGGS APRNETTE [id number] 09/09/2013 12:03:00 09/09/2013 23: 59:59 CLS Outpatient JESSICA GRIGGS APRNETTE [id number] 08/05/2013 13:47:00 08/05/2013 23: 59:59 CLS Outpatient RINA MINOR MD [id number] 03/16/2013 12:41:00 03/16/2013 23: 59:59 CLS Outpatient NAM PATTON APRN [id number] 12/08/2012 15:23:00 12/08/2012 23: 59:59 CLS Outpatient NAM PATTON APRN [id number] 12/08/2012 15:23:00 12/08/2012 23: 59:59 CLS Outpatient NAM PATTON APRN [id number] 09/24/2012 12:44:00 09/24/2012 23: 59:59 CLS Outpatient TREASURE FIELDSNMARILU [id number] 06/16/2012 11:04:00 06/16/2012 23: 59:59 CLS Outpatient [id number] 05/21/2012 16:25:00 05/21/2012 23: 59:59 CLS Outpatient SUSI GODFREY DO [id number] 05/04/2012 11:10:00 05/04/2012 23: 59:59 CLS Outpatient SUSI GODFREY DO [id number] 03/20/2012 10:06:00 03/20/2012 23: 59:59 CLS Outpatient ALVARADO LEAL CHIKIS Delia [id number] 02/27/2012 09:25:00 02/27/2012 23: 59:59 CLS Outpatient [id number] 01/02/2012 13:15:00 01/02/2012 23: 59:59 CLS Outpatient SUSI GODFREY DO [id number] 08/19/2012 14:13:00 Document Registration [id number] 07/15/2012 15:03:00 Document Registration [id number] 07/13/2012 14:55:00 Document Registration [id number] 07/06/2012 14:11:00 Document Registration
== END 2016-08-18 03:29 | disposition left against medical advice (07) ==
LOC: EDUNIT# 01:43 → ER 01:46
DX: F32.9 Major depressive disorder, single episode, unspecified (principal); Z53.21 Procedure and treatment not carried out due to patient leaving prior to being seen by health care provider
CPT/HCPCS: 99283

== ENCOUNTER 2017-03-21 02:08 | Inpatient (IN) | payer SELFPAY ==
[~2017-03-21] VITALS: Ht 167.6 cm; Wt 78.5 kg
[2017-03-21] VITALS (14 sets, daily range): BP systolic 108–125; BP diastolic 54–83
[~2017-03-21 02:08] MED LIST: LITH8SOL6 PO; RISP0.2517 PO; TRAZ5POW MC
--- OUTSIDE RECORDS SUMMARY | 2017-03-21 02:15 | XMS REPORT ---
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 970734495 Problem Hypertension, essential I10 Active 39341331 Problem Anxiety disorder, unspecified type F41.9 Active 126119009 Problem Mood disorder F39 Active 91497740 Problem Bipolar 1 disorder F31.9 Active 979122916 Problem Hyperprolactinemia E22.1 Active 428699558 Problem Mixed hyperlipidemia E78.2 Active 901086567 Problem Screening examination for venereal disease V74.5 Active 540181740 Problem Pain in joint, pelvic region and thigh 719.45 Active 543499830 Problem 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 Active 98138411 Problem Dysphagia, unspecified 787.20 Active 70013133 Problem 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.39 Active 579503563 Problem Other dyspnea and respiratory abnormalities 786.09 Active 633795662 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
--- OUTSIDE RECORDS SUMMARY | 2017-03-21 02:15 | XMS REPORT ---
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 857663716 Problem Hypertension, essential I10 Active 01182991 Problem Anxiety disorder, unspecified type F41.9 Active 784214409 Problem Mood disorder F39 Active 57777816 Problem Bipolar 1 disorder F31.9 Active 620422003 Problem Hyperprolactinemia E22.1 Active 149283826 Problem Mixed hyperlipidemia E78.2 Active 806032625 Problem Screening examination for venereal disease V74.5 Active 135202504 Problem Pain in joint, pelvic region and thigh 719.45 Active 432688912 Problem 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 Active 82385803 Problem Dysphagia, unspecified 787.20 Active 89095020 Problem 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.39 Active 911342294 Problem Other dyspnea and respiratory abnormalities 786.09 Active 773927597 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 13919680 ALLERGIES Substance Reaction Event Type Date Status Lisinopril angioedema Drug Allergy July, Active Codeine Sulfate hives Drug Allergy July, Active SOCIAL HISTORY Never Assessed PLAN OF CARE Activity Details Follow Up 4 Weeks Reason: VITAL SIGNS Height 65 in 2016-07-10 Weight 187.3 lbs 2016-07-10 Heart Rate 80 bpm 2016-07-10 Respiratory Rate 18 2016-07-10 BMI 31.16 kg/m2 2016-07-10 Blood pressure systolic 160 mmHg 2016-07-10 Blood pressure diastolic 102 mmHg 2016-07-10 MEDICATIONS Medication Instructions Dosage Frequency Start Date End Date Duration Status Risperdal 3 MG Orally Once a day 1 tablet 24h May, 30 days Active [place] Carbonate 300 MG Orally Three times a day 1 capsule 8h 30 days Active Trazodone HCl 100 MG Orally Once a day 1 tablet at bedtime 24h May, 30 days Active Inderal LA 80 MG 1 capsule 24h 30 Active Hydrochlorothiazide 25 MG 1 tablet 24h July, Active Norvasc 10 MG Orally Once a day 1 tablet 24h July, Active RESULTS Name Result Date Reference Range LITHIUM (ESKALITH(R)), SERUM 2016-07-10 Mears (Eskalith(R)), Serum 0.5 0.6-1.2 CMP 2016-07-10 Glucose, Serum 93 65-99 BUN 9 6-24 Creatinine, Serum 1.23 0.76-1.27 eGFR If NonAfricn Am 72 >59 eGFR If Africn Am 83 >59 BUN/Creatinine Ratio 7 9-20 Sodium, Serum 142 134-144 Potassium, Serum 4.0 3.5-5.2 Chloride, Serum 101 96-106 Carbon Dioxide, Total 26 18-29 Calcium, Serum 9.6 8.7-10.2 Protein, Total, Serum 6.8 6.0-8.5 Albumin, Serum 3.6 3.5-5.5 Globulin, Total 3.2 1.5-4.5 A/G Ratio 1.1 1.2-2.2 Bilirubin, Total <0.2 0.0-1.2 Alkaline Phosphatase, S 69 39-117 AST (SGOT) 17 0-40 ALT (SGPT) 15 0-44 CBC w/ MANUAL DIFF 2016-07-10 WBC 7.3 3.4-10.8 RBC 4.69 4.14-5.80 Hemoglobin 13.1 12.6-17.7 Hematocrit 39.8 37.5-51.0 MCV 85 79-97 MCH 27.9 26.6-33.0 MCHC 32.9 31.5-35.7 RDW 14.7 12.3-15.4 Platelets 305 150-379 Neutrophils 62 Lymphs 33 Monocytes 3 Eos 2 Basos 0 Neutrophils Absolute 4.5 1.4-7.0 Lymphs (Absolute) 2.4 0.7-3.1 Monocytes(Absolute) 0.2 0.1-0.9 Eos (Absolute Value) 0.1 0.0-0.4 Baso(Absolute) 0.0 0.0-0.2 Differential Comment Note: RBC Comment Note: Normal Platelet Comment Note: Adequate PROLACTIN 2016-07-10 Prolactin 40.2 4.0-15.2 TSH 2016-07-10 TSH 0.153 0.450-4.500 LIPID PANEL 2016-07-10 Cholesterol, Total 200 100-199 Triglycerides 211 0-149 HDL Cholesterol 54 >39 VLDL Cholesterol Milad 42 5-40 LDL Cholesterol Calc 104 0-99 PROCEDURES Procedure Date Ordered Result Body Site ASSAY THYROID STIM HORMONE July 10, 2016 COMPREHEN METABOLIC PANEL July 10, 2016 VENIPUNCT, ROUTINE* July 10, 2016 ASSAY OF PROLACTIN July 10, 2016 LIPID PANEL July 10, 2016 MANUAL CELL COUNT, EACH July 10, 2016 ASSAY OF LITHIUM July 10, 2016 IMMUNIZATIONS No Known Immunizations MEDICAL (GENERAL) HISTORY Type Description Date Medical History Hypertension Medical History Bipolar disorder Hospitalization History Denies any past psychiatric hospital
--- OUTSIDE RECORDS SUMMARY | 2017-03-21 02:16 | XMS REPORT ---
Author Author AMPARO Rivera Organization 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 Active 887208714 Problem Hypertension, essential I10 Active 14799648 Problem Anxiety disorder, unspecified type F41.9 Active 842045229 Problem Mood disorder F39 Active 73740755 Problem Bipolar 1 disorder F31.9 Active 575564465 Problem Hyperprolactinemia E22.1 Active 943933584 Problem Mixed hyperlipidemia E78.2 Active 392459959 Problem Screening examination for venereal disease V74.5 Active 608203378 Problem Pain in joint, pelvic region and thigh 719.45 Active 845144122 Problem 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 Active 06195338 Problem Dysphagia, unspecified 787.20 Active 75492754 Problem 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.39 Active 087642794 Problem Other dyspnea and respiratory abnormalities 786.09 Active 584116869 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 06864402 ALLERGIES Substance Reaction Event Type Date Status Lisinopril angioedema Drug Allergy May, Active Codeine Sulfate hives Drug Allergy May, Active SOCIAL HISTORY Never Assessed PLAN OF CARE Activity Details Follow Up 6 Weeks Reason: VITAL SIGNS Height 65 in 2016-05-08 Weight 180.0 lbs 2016-05-08 Heart Rate 96 bpm 2016-05-08 Respiratory Rate 20 2016-05-08 BMI 29.95 kg/m2 2016-05-08 Blood pressure systolic 150 mmHg 2016-05-08 Blood pressure diastolic 110 mmHg 2016-05-08 MEDICATIONS Medication Instructions Dosage Frequency Start Date End Date Duration Status Inderal LA 80 MG 1 capsule 24h 30 Active Hydrochlorothiazide 25 MG 1 tablet 24h July, Active Risperdal 3 MG Orally Once a day 1 tablet 24h May, 30 day(s) Active lithium 300 mg orally Once a day with dinner 3 capsule Mar, 30 Active [place] Carbonate 300 MG Orally Three times a day 1 capsule 8h 30 days Active Norvasc 10 MG Orally Once a day 1 tablet 24h July, Active Trazodone HCl 100 MG Orally Once a day 1 tablet at bedtime 24h May, 30 day(s) Active Risperidone 2 MG Orally Once a day qHS 1 tablet 30 Active RESULTS No Results PROCEDURES Procedure Date Ordered Result Body Site Psych diagnostic evaluation w/medical services, established patient May 08, 2016 IMMUNIZATIONS No Known Immunizations MEDICAL (GENERAL) HISTORY Type Description Date Medical History Hypertension Medical History Bipolar disorder Hospitalization History Denies any past psychiatric hospital
--- OUTSIDE RECORDS SUMMARY | 2017-03-21 02:16 | XMS REPORT ---
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 Active 781399313 Problem Hypertension, essential I10 Active 38022240 Problem Anxiety disorder, unspecified type F41.9 Active 584720024 Problem Mood disorder F39 Active 61791989 Problem Bipolar 1 disorder F31.9 Active 928275856 Problem Hyperprolactinemia E22.1 Active 622920836 Problem Mixed hyperlipidemia E78.2 Active 976084035 Problem Screening examination for venereal disease V74.5 Active 622476168 Problem Pain in joint, pelvic region and thigh 719.45 Active 782647911 Problem 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 Active 74151205 Problem Dysphagia, unspecified 787.20 Active 09934921 Problem 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
--- OUTSIDE RECORDS SUMMARY | 2017-03-21 02:17 | XMS REPORT | Continuity of Care Document ---
Author Author [facility] Address Unknown Phone Unavailable Allergies Active Description Code Type Severity Reaction Onset Reported/Identified Relationship to Patient Clinical Status Yes codeine Drug Allergy N/A N/A 05/16/2008 Yes codeine Drug Allergy 05/16/2008 Yes lisinopril Drug Allergy 09/02/2008 Yes lisinopril Drug Allergy N/A N/A 08/05/2013 Medications There is no data. Problems Date Dx Coded Attending Type Code [...] APRN 401.1 HYPERTENSION, BENIGN ESSENTIAL 11/02/2007 [place] RGIGGS APRN 401.1 HYPERTENSION, BENIGN ESSENTIAL 11/02/2007 JESSICA GRIGGS APRNETTE 401.1 HYPERTENSION, BENIGN ESSENTIAL 05/16/2008 WERDER DO, SUSI F 603.9 HYDROCELE UNSPECIFIED 05/16/2008 603.9 HYDROCELE UNSPECIFIED 05/16/2008 CHIKIS CHILDERS DO 603.9 HYDROCELE UNSPECIFIED 05/16/2008 SUSI GODFREY DO [...] BRYANT, [place] 603.9 HYDROCELE UNSPECIFIED 05/16/2008 ANSON ANNETTE, [place] 603.9 HYDROCELE UNSPECIFIED 05/16/2008 ANSONJOSELINE BRYANT, [place] 603.9 HYDROCELE UNSPECIFIED 08/17/2008 SUSI GODFREY DO 789.00 ABDOMINAL PAIN UNSPECIFIED SITE 08/17/2008 789.00 [...] APRN 789.00 ABDOMINAL PAIN UNSPECIFIED SITE 08/17/2008 ANSON JESSICA BRYANTETTE 789.00 ABDOMINAL PAIN UNSPECIFIED SITE 08/17/2008 ANSONORLANDO TREVIZO APRN 789.00 ABDOMINAL PAIN UNSPECIFIED SITE 12/07/2008 SUSI [...] APRN 296.40 MO BIPOLAR MANIC UNSPECIFIED 01/19/2009 [place] GRIGGS APRN 296.40 MO BIPOLAR MANIC UNSPECIFIED 01/19/2009 [place] GRIGGS APRN 296.40 MO BIPOLAR MANIC UNSPECIFIED 02/07/2009 SUSI [...] 296.90 MO MOOD DIS NOS 02/07/2009 ANSON BRYANT, [place] 296.90 MO MOOD DIS NOS 02/07/2009 ANSON HITCHER, [place] 296.90 MO MOOD DIS NOS 02/07/2009 ANSON ANNETTE, [place] 296.90 MO MOOD DIS NOS 05/01/2009 [...] MD V58.69 MEDICATION HIGH RISK 05/01/2009 ANSON HITCHER, [place] V58.69 MEDICATION HIGH RISK 05/01/2009 ANSON HITCHER, [place] V58.69 MEDICATION HIGH RISK 05/01/2009 ANSON BRYANT, [place] V58.69 MEDICATION HIGH RISK 11/18/2009 USSI GODFREY DO 307.47 SI DYSSOMNIA NOS 11/18/2009 [...] MD 307.47 SI DYSSOMNIA NOS 11/18/2009 ANSON HITCHER, [place] 307.47 SI DYSSOMNIA NOS 11/18/2009 ANSON HITCHER, [place] 307.47 SI DYSSOMNIA NOS 11/18/2009 ANSON ANNETTE, [place] 307.47 SI DYSSOMNIA NOS 05/23/2010 SUSI GODFREY DO F 477.9 RHINITIS 05/23/2010 SUSI GODFREY DO F 785.6 LYMPH NODES ENLARGEMENT 05/23/2010 477.9 RHINITIS 05/23/2010 785.6 LYMPH NODES ENLARGEMENT 05/23/2010 CHIKIS CHILDERS DO K 477.9 RHINITIS 05/23/2010 CHILDERS CHIKIS LEAL K 785.6 LYMPH NODES ENLARGEMENT 05/23/2010 SUSI [...] LYMPH NODES ENLARGEMENT 05/23/2010 MARILU AMANDA APRN 477.9 RHINITIS 05/23/2010 MARILU AMANDA APRN 785.6 LYMPH NODES ENLARGEMENT 05/23/2010 NAM PATTON APRN 477.9 RHINITIS 05/23/2010 POOJA HITCHER, NAM D 785.6 LYMPH NODES ENLARGEMENT 05/23/2010 NAM PATTON APRN 477.9 RHINITIS 05/23/2010 POOJA HITCHER, NAM D 785.6 LYMPH NODES ENLARGEMENT 05/23/2010 POOJA HITCHER, NAM D 477.9 RHINITIS 05/23/2010 NAM PATTON APRN D 785.6 LYMPH NODES ENLARGEMENT 05/23/2010 RINA MINOR MD 477.9 RHINITIS 05/23/2010 MILY STOCKTON, RINA 785.6 LYMPH NODES ENLARGEMENT 05/23/2010 ANSON HITCHER, [place] 477.9 RHINITIS 05/23/2010 ANSON HITCHER, [place] 785.6 LYMPH NODES ENLARGEMENT 05/23/2010 ANSON HITCHER, [place] 477.9 RHINITIS 05/23/2010 ANSON HITCHER, [place] 785.6 LYMPH NODES ENLARGEMENT 05/23/2010 ANSON HITCHER, [place] 477.9 RHINITIS 05/23/2010 ANSON HITCHER, [place] 785.6 LYMPH NODES ENLARGEMENT 05/28/2010 SUSI [...] MO BIPOLAR I DEPRESSED UNSPECIFIED 09/21/2010 [place] RGIGGS APRN 296.50 MO BIPOLAR I DEPRESSED UNSPECIFIED [...] MINOR MD 462 PHARYNGITIS ACUTE 01/22/2011 ANSON HITCHER, [place] 462 PHARYNGITIS ACUTE 01/22/2011 ANSON HITCHER, [place] 462 PHARYNGITIS ACUTE 01/22/2011 ANSON HITCHER, [place] 462 PHARYNGITIS ACUTE 06/21/2011 SUSI GODFREY [...] AND UNSPECIFIED PARTS OF MOUTH 06/21/2011 ANSON HITCHER, [place] 210.4 BENIGN NEOPLASM OF OTHER AND UNSPECIFIED PARTS OF MOUTH 06/21/2011 ANSON HITCHER, [place] 210.4 BENIGN NEOPLASM OF OTHER AND UNSPECIFIED PARTS OF MOUTH 06/21/2011 [place] GRIGGS APRN 210.4 BENIGN NEOPLASM OF OTHER AND UNSPECIFIED PARTS OF MOUTH 02/27/2012 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 02/27/2012 787.20 DYSPHAGIA UNSPECIFIED 02/27/2012 CHILDERS DO CHIKIS K 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 02/27/2012 CHILDERS DO, CHIKIS K 787.20 DYSPHAGIA UNSPECIFIED 02/27/2012 WERDER DO SUSI F 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 [...] 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 02/27/2012 ANSON HITCHER, [place] 787.20 DYSPHAGIA UNSPECIFIED 02/27/2012 ANSON HITCHER, [place] 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 02/27/2012 ANSON HITCHER, [place] 787.20 DYSPHAGIA UNSPECIFIED 02/27/2012 ANSON HITCHER, [place] 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 02/27/2012 ANSON HITCHER, [place] 787.20 DYSPHAGIA UNSPECIFIED 03/20/2012 CHILDERS DO, [...] 03/20/2012 NAM PATTON APRN 786.09 SNORING 03/20/2012 RINA MINOR MD 315.39 SPEECH DELAY 03/20/2012 RINA MINOR MD 786.09 SNORING 03/20/2012 [place] GRIGGS APRN 315.39 SPEECH DELAY 03/20/2012 ANSON HITCHER, [place] 786.09 SNORING 03/20/2012 ANSON HITCHER, [place] 315.39 SPEECH DELAY 03/20/2012 ANSON HITCHER, [place] 786.09 SNORING 03/20/2012 ANSON HITCHER, [place] 315.39 SPEECH DELAY 03/20/2012 ANSON HITCHER, [place] 786.09 SNORING 06/16/2012 296.66 BIPOLAR I [...] EPISODE (OR CURRENT) MIXED IN FULL REMISSION 07/15/2012 301.0 PARANOID PERSONALITY DISORDER 07/15/2012 301.0 PARANOID PERSONALITY DISORDER 07/15/2012 MARILU AMANDA APRN 301.0 PARANOID PERSONALITY DISORDER 07/15/2012 NAM PATTON APRN 301.0 PARANOID PERSONALITY DISORDER 07/15/2012 NAM PATTON APRN 301.0 PARANOID PERSONALITY DISORDER 07/15/2012 NAM PATTON APRN 301.0 PARANOID PERSONALITY DISORDER 07/15/2012 RINA MINOR MD 301.0 PARANOID PERSONALITY DISORDER 07/15/2012 ANSON HITCHER, [place] 301.0 PARANOID PERSONALITY DISORDER 07/15/2012 ANSON HITCHER, [place] 301.0 PARANOID PERSONALITY DISORDER 07/15/2012 ANSON ANNETTE, [place] 301.0 PARANOID PERSONALITY DISORDER 09/18/2012 MARILU AMANDA APRN V74.5 STD SCREEN 09/18/2012 NAM PATTON APRN V74.5 STD SCREEN 09/18/2012 NAM PATTON APRN V74.5 STD SCREEN 09/18/2012 NAM PATTON APRN V74.5 STD SCREEN 09/18/2012 RINA MINOR MD V74.5 STD SCREEN 09/18/2012 ANSON HITCHER, [place] V74.5 STD SCREEN 09/18/2012 ANSONJESSICA TREVIZO APRNETTE V74.5 STD SCREEN 09/18/2012 ANSONJOSELINE BRYANT, [place] V74.5 STD SCREEN 09/24/2012 MARILU AMANDA APRN [...] Performed By Performed On DARRYL UP 02/27/2012 89385 ROUTINE VENIPUNCTURE 05/04/2012 59710 UA LONG DIP 05/04/2012 68961 CBC 05/04/2012 06717 CMP 05/04/2012 [id number] GFR CALC (RESULT ONLY) 05/04/2012 54533 LITHIUM 05/04/2012 16234 TSH 05/04/2012 12912 ROUTINE VENIPUNCTURE 05/21/2012 56190 UA LONG DIP 05/21/2012 12192 CREATININE 05/22/2012 0899392 GFR CALC (RESULT ONLY) 05/22/2012 06575 LITHIUM 05/22/2012 67904 PSYTX PT&/FAMILY 45 MINUTES 06/18/2012 19363 THERAPUTIC INJ SQ/IM 07/06/2012 J2930 SOLUMEDROL INJ 07/06/2012 96670 PSYTX PT&/FAMILY 30 MINUTES 07/21/2012 39579 ROUTINE VENIPUNCTURE 08/19/2012 74553 PSYTX PT&/FAMILY 30 MINUTES 08/21/2012 44745 XRAY HIP RIGHT UNILATERAL MIN 2 VIEWS 09/24/2012 92825 ROUTINE VENIPUNCTURE 08/05/2013 6005749 GFR CALC (RESULT ONLY) 08/05/2013 05285 BMP 08/05/2013 63677 LITHIUM 08/05/2013 Results There is no data. Encounters ACCT No. Visit Date/Time Discharge Status Pt. Type Provider Facility Loc./Unit Complaint [id number] 06/21/2014 13:37:00 06/21/2014 23:59:59 CLS Outpatient [place] GRIGGS APRN [id number] 09/09/2013 12:03:00 09/09/2013 23:59:59 CLS Outpatient JESSICA GRIGGS APRNETTE [id number] 09/09/2013 12:03:00 09/09/2013 23:59:59 CLS Outpatient JESSICA GRIGGS APRNETTE [id number] 08/05/2013 13:47:00 08/05/2013 23:59:59 CLS Outpatient RINA MINOR MD [id number] 03/16/2013 12:41:00 03/16/2013 23:59:59 CLS Outpatient NAM PATTON APRN [id number] 12/08/2012 15:23:00 12/08/2012 23:59:59 CLS Outpatient NAM PATTON APRN [id number] 12/08/2012 15:23:00 12/08/2012 23:59:59 CLS Outpatient NAM PATTON APRN [id number] 09/24/2012 12:44:00 09/24/2012 23:59:59 CLS Outpatient MARILU AMANDA APRN [id number] 06/16/2012 11:04:00 06/16/2012 23:59:59 CLS Outpatient [id number] 05/21/2012 16:25:00 05/21/2012 23:59:59 CLS Outpatient SUSI GODFREY DO [id number] 05/04/2012 11:10:00 05/04/2012 23:59:59 CLS Outpatient GRIFFINSUSI JONES DO [id number] 03/20/2012 10:06:00 03/20/2012 23:59:59 CLS Outpatient CHIKIS CHILDERS DO [id number] 02/27/2012 09:25:00 02/27/2012 23:59:59 CLS Outpatient [id number] 01/02/2012 13:15:00 01/02/2012 23:59:59 CLS Outpatient GRIFFINSUSI JONES DO [id number] 08/19/2012 14:13:00 Document Registration [id number] 07/15/2012 15:03:00 Document Registration [id number] 07/13/2012 14:55:00 Document Registration [id number] 07/06/2012 14:11:00 Document Registration
[2017-03-21] MEDS ORDERED: ACTIVATED CHARCOAL/SORBITOL 50 G/240 ML BTL ONE (02:21)
[2017-03-21] MEDS ORDERED: NS IV 1000 ML 1,000 ML IV ONE ×2 (02:27→04:32)
[2017-03-21] MEDS ORDERED: ONDANSETRON 4 MG/2 ML (SDV) Z0FRAN ONE (02:32)
[2017-03-21 02:48] LABS: BASOPHILS % (AUTO) 0 % (0-10); EOSINOPHILS # (AUTO) 0.2 10^3/uL (0.0-0.3); EOSINOPHILS % (AUTO) 2 % (0-10); HEMATOCRIT 43 % (40-54); HEMOGLOBIN 14.5 G/DL (13.3-17.7); LYMPHOCYTES # (AUTO) 2.7 X 10^3 (1.0-4.0); LYMPHOCYTES % (AUTO) 25 % (12-44); MEAN CORPUSCULAR HEMOGLOBIN 29 PG (25-34); MEAN CORPUSCULAR HGB CONC 34 G/DL (32-36); MEAN CORPUSCULAR VOLUME 85 FL (80-99); MEAN PLATELET VOLUME 9.2 FL (7.4-10.4); MONOCYTES # (AUTO) 0.9 X 10^3 (0.0-1.0); MONOCYTES % (AUTO) 8 % (0-12); NEUTROPHILS # (AUTO) 7.1 X 10^3 (1.8-7.8); NEUTROPHILS % (AUTO) 65 % (42-75); PLATELET COUNT 272 10^3/uL (130-400); RED BLOOD COUNT 5.06 10^6/uL (4.35-5.85); RED CELL DISTRIBUTION WIDTH 14.5 % (10.0-14.5); WHITE BLOOD COUNT 10.9 10^3/uL (4.3-11.0)
[2017-03-21 03:11] LABS: ALANINE AMINOTRANSFERASE 12 U/L (0-55); ALBUMIN 3.6 GM/DL (3.2-4.5); ALKALINE PHOSPHATASE 70 U/L (40-136); BILIRUBIN,TOTAL 0.4 MG/DL (0.1-1.0); BUN/CREATININE RATIO 10; CALCIUM 9.3 MG/DL (8.5-10.1); CARBON DIOXIDE 24 MMOL/L (21-32); CHLORIDE 103 MMOL/L (98-107); CREATININE SERUM 1.22 MG/DL (0.60-1.30); GFR ESTIMATED > 60; GLUCOSE 126 MG/DL (70-105); MAGNESIUM 2.5 MG/DL (1.8-2.4); POTASSIUM 3.9 MMOL/L (3.6-5.0); SALICYLATE < 5.0 MG/DL (5.0-20.0); SODIUM 140 MMOL/L (135-145); TOTAL PROTEIN 7.1 GM/DL (6.4-8.2)
[2017-03-21 03:13] LABS: ACETAMINOPHEN < 10 UG/ML (10-30)
[2017-03-21] MEDS ORDERED: ASPIRIN 81 MG CHEW (CHILDREN'S ASA) PO ONE (03:30)
[2017-03-21 03:31] LABS: TSH (THYROID ANALYZER) 0.59 UIU/ML (0.35-4.94)
[2017-03-21 03:52] LABS: BILIRUBIN,URINE NEGATIVE (NEGATIVE); CLARITY,URINE CLEAR; COLOR,URINE YELLOW; GLUCOSE, URINE (UA) NEGATIVE (NEGATIVE); KETONES,URINE NEGATIVE (NEGATIVE); LEUKOCYTE ESTERASE ,URINE NEGATIVE (NEGATIVE); NITRITE,URINE NEGATIVE (NEGATIVE); PH,URINE 6.5 (5-9); PROTEIN,URINE NEGATIVE (NEGATIVE); UROBILINOGEN,URINE NORMAL (NORMAL)
[2017-03-21 04:02] LABS: BACTERIA,URINE NEGATIVE /HPF
--- NOTE | 2017-03-21 04:02 | ED Psychosocial ---
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 HE STATES HE TOOK AN UNKNOWN AMOUNT OF LITHIUM, TRAZADONE, RISPERDAL, INDERAL, AND METOPROLOL. HE STATES HE HAS BEEN DEPRESSED R/T HE IS HOMELESS AND HAS "NO ONE" . PT IS ALERT BUT DROWSY AT THIS TIME. HE AWAKENS TO VERBAL STIMULI. Source: patient Exam Limitations: clinical condition History of Present Illness Time seen by provider: 02:11 Initial Comments This 41-year-old gentleman presents to the emergency room in ambulatory status with report of overdose on multiple medications with suicidal intent. He reports he took a handful of lithium, Risperdal, trazodone, Inderal, and possibly one other new or medication in unknown quantities. He is rather somnolent but otherwise asymptomatic. He reports feeling very lonely as he is from [place] but is living here by himself at present. He does receive behavioral health care through the [facility]. Richard Thomas is his primary care provider. Patient denies any illicit drug use or alcohol use. ST elevation in V2 was noted on EKG. Patient has no chest pain at present but did have chest pain a few days ago. Allergies and Home Medications Allergies Coded Allergies: shellfish derived (Verified Allergy, Unknown, 08/18/16) Home Medications Honor Citrate 8 Meq/5 Ml Solution, 8 MEQ PO, (Reported) Risperidone 0.25 Mg Tablet, 0.25 MG PO, (Reported) Trazodone HCl 5 Gm Powder, 5 GM MC, (Reported) Constitutional: see HPI EENTM: no symptoms reported Respiratory: no symptoms reported Cardiovascular: see HPI Gastrointestinal: no symptoms reported Genitourinary: no symptoms reported Musculoskeletal: no symptoms reported Skin: no symptoms reported Psychiatric/Neurological: See HPI Past Owuyhoo-Azphcz-Zqvaus Hx Patient Social History Alcohol Use: Denies Use Recreational Drug Use: No Smoking Status: Never a Smoker 2nd Hand Smoke Exposure: No Recent Foreign Travel: No Contact w/Someone Who Travel: No Recent Infectious Disease Expo: No Recent Hopitalizations: No Seasonal Allergies Seasonal Allergies: No Surgeries History of Surgeries: No Respiratory History of Respiratory Disorde: No Cardiovascular History of Cardiac Disorders: Yes Cardiac Disorders: Hypertension Neurological History of Neurological Disord: No Reproductive System Hx Reproductive Disorders: No Genitourinary History of Genitourinary Disor: No Gastrointestinal History of Gastrointestinal Di: No Musculoskeletal History of Musculoskeletal Dis: No Endocrine History of Endocrine Disorders: No HEENT History of HEENT Disorders: No Cancer History of Cancer: No Psychosocial History of Psychiatric Problem: Yes Behavioral Health Disorders: Bipolar, Depression Integumentary History of Skin or Integumenta: No Blood Transfusions History of Blood Disorders: No Physical Exam Vital Signs Vital Sign - Last 12Hours 03/21/17 02:20 Temp 97.2 Pulse 75 Resp 11 B/P (MAP) 159/87 (111) Pulse Ox 99 O2 Delivery Room Air Capillary Refill : Less Than 3 Seconds General Appearance: WD/WN, no apparent distress, other (hypersomnolent) HEENT: PERRL/EOMI, normal ENT inspection, pharynx normal Neck: normal inspection Respiratory: lungs clear, normal breath sounds, no respiratory distress, no accessory muscle use Cardiovascular: regular rate, rhythm, no edema, no murmur Gastrointestinal: normal bowel sounds, non tender, soft Extremities: normal inspection, no pedal edema Neurologic/Psychiatric: biztalk developer II-XII nml as tested, no motor/sensory deficits, oriented x 3, other (hypersomnolent, admits to suicidal intent with overdose) Appearance/Memory: appropriate appearance Behavior/Eye Contact: cooperative, other (dulled mentation and speech) Thoughts/Hallucinations: no apparent hallucination Skin: normal color, warm/dry Progress/Results/Core Measures Results/Orders Lab Results Laboratory Tests Test 03/21/17 02:30 03/21/17 03:47 Range/Units White Blood Count 10.9 4.3-11.0 10^3/uL Red Blood Count 5.06 4.35-5.85 10^6/uL Hemoglobin 14.5 13.3-17.7 G/DL Hematocrit 43 40-54 % Mean Corpuscular Volume 85 80-99 FL Mean Corpuscular Hemoglobin 29 25-34 PG Mean Corpuscular Hemoglobin Concent 34 32-36 G/DL Red Cell Distribution Width 14.5 10.0-14.5 % Platelet Count 272 130-400 10^3/uL Mean Platelet Volume 9.2 7.4-10.4 FL Neutrophils (%) (Auto) 65 42-75 % Lymphocytes (%) (Auto) 25 12-44 % Monocytes (%) (Auto) 8 0-12 % Eosinophils (%) (Auto) 2 0-10 % Basophils (%) (Auto) 0 0-10 % Neutrophils # (Auto) 7.1 1.8-7.8 X 10^3 Lymphocytes # (Auto) 2.7 1.0-4.0 X 10^3 Monocytes # (Auto) 0.9 0.0-1.0 X 10^3 Eosinophils # (Auto) 0.2 0.0-0.3 10^3/uL Basophils # (Auto) 0.0 0.0-0.1 10^3/uL Sodium Level 140 135-145 MMOL/L Potassium Level 3.9 3.6-5.0 MMOL/L Chloride Level 103 98-107 MMOL/L Carbon Dioxide Level 24 21-32 MMOL/L Anion Gap 13 5-14 MMOL/L Blood Urea Nitrogen 12 7-18 MG/DL Creatinine 1.22 0.60-1.30 MG/DL Estimat Glomerular Filtration Rate > 60 BUN/Creatinine Ratio 10 Glucose Level 126 H 70-105 MG/DL Calcium Level 9.3 8.5-10.1 MG/DL Magnesium Level 2.5 H 1.8-2.4 MG/DL Total Bilirubin 0.4 0.1-1.0 MG/DL Aspartate Amino Transf (AST/SGOT) 16 5-34 U/L Alanine Aminotransferase (ALT/SGPT) 12 0-55 U/L Alkaline Phosphatase 70 40-136 U/L Troponin I < 0.30 <0.30 NG/ML Total Protein 7.1 6.4-8.2 GM/DL Albumin 3.6 3.2-4.5 GM/DL TSH [place] Testing 0.59 0.35-4.94 UIU/ML Salicylates Level < 5.0 L 5.0-20.0 MG/DL Acetaminophen Level < 10 L 10-30 UG/ML Serum Alcohol < 10 <10 MG/DL Urine Color YELLOW Urine Clarity CLEAR Urine pH 6.5 5-9 Urine Specific [place] 1.010 L 1.016-1.022 Urine Protein NEGATIVE NEGATIVE Urine Glucose (UA) NEGATIVE NEGATIVE Urine Ketones NEGATIVE NEGATIVE Urine Nitrite NEGATIVE NEGATIVE Urine Bilirubin NEGATIVE NEGATIVE Urine Urobilinogen NORMAL NORMAL MG/DL Urine Leukocyte Esterase NEGATIVE NEGATIVE Urine RBC (Auto) NEGATIVE NEGATIVE Urine RBC NONE /HPF Urine WBC NONE /HPF Urine Squamous Epithelial Cells 2-5 /HPF Urine Crystals NONE /LPF Urine Bacteria NEGATIVE /HPF Urine Casts NONE /LPF Urine Mucus NEGATIVE /LPF Urine Culture Indicated NO Urine Opiates Screen NEGATIVE NEGATIVE Urine Oxycodone Screen NEGATIVE NEGATIVE Urine Methadone Screen NEGATIVE NEGATIVE Urine Propoxyphene Screen NEGATIVE NEGATIVE Urine Barbiturates Screen NEGATIVE NEGATIVE Ur Tricyclic Antidepressants Screen NEGATIVE NEGATIVE Urine Phencyclidine Screen NEGATIVE NEGATIVE Urine Amphetamines Screen POSITIVE H NEGATIVE Urine Methamphetamines Screen POSITIVE H NEGATIVE Urine Benzodiazepines Screen NEGATIVE NEGATIVE Urine Cocaine Screen NEGATIVE NEGATIVE Urine Cannabinoids Screen NEGATIVE NEGATIVE My Orders Orders - MIKAELA MARTINEZ MD Charcoal/Sorbitol Oral Susp (Actidose/So (03/21/17 02:21) Acetaminophen (03/21/17 02:27) Alcohol (03/21/17 02:27) Cbc With Automated Diff (03/21/17 02:27) Comprehensive Metabolic Panel (03/21/17 02:27) Drug Screen Stat (Urine) (03/21/17 02:27) Honor Level (03/21/17 02:27) Magnesium (03/21/17 02:27) Salicylate (03/21/17 02:27) Thyroid Analyzer (03/21/17 02:27) Ua Culture If Indicated (03/21/17 02:27) Ekg Tracing (03/21/17 02:27) Monitor-Rhythm Ecg Trace Only (03/21/17 02:27) Saline Lock/Iv-Start (03/21/17 02:27) Ns Iv 1000 Ml (Sodium Chloride 0.9%) (03/21/17 02:27) Ondansetron Injection (Zofran Injectio (03/21/17 02:32) Troponin I (03/21/17 02:46) Aspirin Chewable Tablet (Baby Aspirin Ch (03/21/17 03:30) Honor Level (03/21/17 04:30) Medications Given in ED Current Medications Medications Dose Ordered Sig/Rosibel Route Start Time Stop Time Status Last Admin Dose Admin Charcoal/Sorbitol 50 gm STK-MED ONCE .ROUTE 03/21/17 02:21 03/21/17 02:24 DC 03/21/17 02:25 50 GM Ondansetron HCl 4 mg STK-MED ONCE .ROUTE 03/21/17 02:32 03/21/17 02:34 DC 03/21/17 02:35 4 MG Sodium Chloride 1,000 ml @ 0 mls/hr Q0M ONCE IV 03/21/17 02:27 03/21/17 02:30 DC 03/21/17 02:35 0 MLS/HR Vital Signs/I&O Vital Sign - Last 12Hours 03/21/17 02:20 Temp 97.2 Pulse 75 Resp 11 B/P (MAP) 159/87 (111) Pulse Ox 99 O2 Delivery Room Air Blood Pressure Mean: 111 Progress Note : Progress Note Patient received activated charcoal during assessment. Poison control was contacted. They recommended supportive care, IV hydration, cardiac monitoring and EKGs every 4 hours, and lithium levels every 2 hours. Patient received 2 L of normal saline boluses in the emergency room. Initial EKG demonstrated ST elevation in V2 and borderline ST changes in the surrounding leads. Case was reviewed with Dr. Saldana. He recommended cardiac rule out with troponin levels. Initial troponin was negative. Patient is not a House Manager candidate at this time due to absence of chest pain at present and his guarded status with overdose. He did receive aspirin. Patient remained hyper somnolent but was responsive. He was even able to stand on his own power to provide a urine specimen. Urine drug screen was positive for methamphetamines. Poison control recommended lithium levels every 2 hours, but lithium is a send out lab for our facility. A 2 hour lithium level is being drawn in the emergency room for trending purposes. Our in-house lab is checking on availability for an earlier in the year to the receiving processing lab. ECG Initial ECG Impression Date: Mar 21, 2017 Initial ECG Impression Time: 02:36 Initial ECG Rate: 60 Initial ECG Rhythm: Normal Sinus Comment Sinus rhythm with a borderline left axis deviation. Isolated ST elevation in V2. Borderline ST changes in V1, V3, and V4. Departure Communication (Admissions) Time/Spoke to Admitting Phy: 03:[address] Naz Mayo Time/Spoke to Consulting Phy: 02:50 Communication/Consulting Dr. Saldana Impression Impression: Primary Impression: Suicide attempt Additional Impressions: Medication overdose Qualified Codes: T50.902A - Poisoning by unspecified drugs, medicaments and biological substances, intentional self-harm, initial encounter ST elevation Disposition: ADMITTED INPATIENT Condition: Improved Admissions Decision to Admit Reason: Admit from ER (General) Decision to Admit/Date: Mar 21, 2017 Time/Decision to Admit Time: 02:15 Departure-Patient Inst. Referrals: NO,LOCAL PHYSICIAN (PCP/Family) Primary Care Physician Patient Instructions: ALCOHOL AND SUBSTANCE ABUSE MIKAELA MARTINEZ MD Mar 21, 2017 04:01
[2017-03-21 04:05] LABS: AMPHETAMINE SCREEN, URINE POSITIVE (NEGATIVE); BARBITURATE SCREEN URINE NEGATIVE (NEGATIVE); BENZODIAZEPINES SCREEN URINE NEGATIVE (NEGATIVE); CANNABINOID SCREEN, URINE NEGATIVE (NEGATIVE); COCAINE SCREEN URINE NEGATIVE (NEGATIVE); METHADONE STAT NEGATIVE (NEGATIVE); METHAMPHETAMINE SCREEN URINE S POSITIVE (NEGATIVE); OPIATE SCREEN URINE NEGATIVE (NEGATIVE); OXYCODONE STAT NEGATIVE (NEGATIVE); PROPOXYPHENE STAT NEGATIVE (NEGATIVE); TRICYCLIC ANTIDEPRESSANTS SCRE NEGATIVE (NEGATIVE)
--- OUTSIDE RECORDS SUMMARY | 2017-03-21 05:08 | XMS REPORT | Continuity of Care Document ---
Author Author [facility] Address Unknown Phone Unavailable Allergies Active Description [...] GRIGGS APRN 401.1 HYPERTENSION, BENIGN ESSENTIAL 11/02/2007 JESSICA [...] 296.90 MO MOOD DIS NOS 02/07/2009 ANSON SHEEP HERDER, [place] 296.90 MO MOOD DIS NOS 02/07/2009 [...] MD V58.69 MEDICATION HIGH RISK 05/01/2009 ANSON SHEEP HERDER, [place] V58.69 MEDICATION HIGH RISK 05/01/2009 ANSON SHEEP HERDER, [place] V58.69 MEDICATION HIGH RISK 05/01/2009 ANSON BRYANT, [place] V58.69 MEDICATION HIGH RISK 11/18/2009 SUSI [...] MD 307.47 SI DYSSOMNIA NOS 11/18/2009 ANSON SHEEP HERDER, [place] 307.47 SI DYSSOMNIA NOS 11/18/2009 ANSON SHEEP HERDER, [place] 307.47 SI DYSSOMNIA NOS 11/18/2009 ANSON [...] NAM PATTON APRN 477.9 RHINITIS 05/23/2010 POOJA SHEEP HERDER, NAM D 785.6 LYMPH NODES ENLARGEMENT 05/23/2010 NAM PATTON APRN 477.9 RHINITIS 05/23/2010 POOJA SHEEP HERDER, NAM D 785.6 LYMPH NODES ENLARGEMENT 05/23/2010 POOJA SHEEP HERDER, NAM D 477.9 RHINITIS 05/23/2010 NAM PATTON APRN D 785.6 LYMPH NODES ENLARGEMENT 05/23/2010 RINA MINOR MD 477.9 RHINITIS 05/23/2010 MILY STOCKTON, RINA 785.6 LYMPH NODES ENLARGEMENT 05/23/2010 ANSON SHEEP HERDER, [place] 477.9 RHINITIS 05/23/2010 ANSON SHEEP HERDER, [place] 785.6 LYMPH NODES ENLARGEMENT 05/23/2010 ANSON SHEEP HERDER, [place] 477.9 RHINITIS 05/23/2010 ANSON SHEEP HERDER, [place] 785.6 LYMPH NODES ENLARGEMENT 05/23/2010 ANSON SHEEP HERDER, [place] 477.9 RHINITIS 05/23/2010 ANSON SHEEP HERDER, [place] 785.6 LYMPH NODES ENLARGEMENT 05/28/2010 SUSI [...] ACUTE 01/22/2011 462 PHARYNGITIS ACUTE 01/22/2011 CHIKIS CIHLDERS DO 462 PHARYNGITIS ACUTE 01/22/2011 SUSI GODFRYE DO 462 PHARYNGITIS ACUTE 01/22/2011 SUSI GODFREY [...] MINOR MD 462 PHARYNGITIS ACUTE 01/22/2011 ANSON SHEEP HERDER, [place] 462 PHARYNGITIS ACUTE 01/22/2011 ANSON SHEEP HERDER, [place] 462 PHARYNGITIS ACUTE 01/22/2011 ANSON SHEEP HERDER, [place] 462 PHARYNGITIS ACUTE 06/21/2011 SUSI GODFREY [...] AND UNSPECIFIED PARTS OF MOUTH 06/21/2011 ANSON SHEEP HERDER, [place] 210.4 BENIGN NEOPLASM OF OTHER AND UNSPECIFIED PARTS OF MOUTH 06/21/2011 ANSON SHEEP HERDER, [place] 210.4 BENIGN NEOPLASM OF OTHER AND [...] 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 02/27/2012 ANSON SHEEP HERDER, [place] 787.20 DYSPHAGIA UNSPECIFIED 02/27/2012 ANSON SHEEP HERDER, [place] 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 02/27/2012 ANSON SHEEP HERDER, [place] 787.20 DYSPHAGIA UNSPECIFIED 02/27/2012 ANSON SHEEP HERDER, [place] 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 02/27/2012 ANSON SHEEP HERDER, [place] 787.20 DYSPHAGIA UNSPECIFIED 03/20/2012 CHILDERS DO, [...] GRIGGS APRN 315.39 SPEECH DELAY 03/20/2012 ANSON SHEEP HERDER, [place] 786.09 SNORING 03/20/2012 ANSON SHEEP HERDER, [place] 315.39 SPEECH DELAY 03/20/2012 ANSON SHEEP HERDER, [place] 786.09 SNORING 03/20/2012 ANSON SHEEP HERDER, [place] 315.39 SPEECH DELAY 03/20/2012 ANSON SHEEP HERDER, [place] 786.09 SNORING 06/16/2012 296.66 BIPOLAR I [...] MD 301.0 PARANOID PERSONALITY DISORDER 07/15/2012 ANSON SHEEP HERDER, [place] 301.0 PARANOID PERSONALITY DISORDER 07/15/2012 ANSON SHEEP HERDER, [place] 301.0 PARANOID PERSONALITY DISORDER 07/15/2012 ANSON ANNETTE, [place] 301.0 PARANOID PERSONALITY DISORDER 09/18/2012 MARILU AMANDA APRN V74.5 STD SCREEN 09/18/2012 NAM PATTON APRN V74.5 STD SCREEN 09/18/2012 NAM PATTON APRN V74.5 STD SCREEN 09/18/2012 NAM PATTON APRN V74.5 STD SCREEN 09/18/2012 RINA MINOR MD V74.5 STD SCREEN 09/18/2012 ANSON SHEEP HERDER, [place] V74.5 STD SCREEN 09/18/2012 ANSONJESSICA TREVIZO [...] JOINT INVOLVING PELVIC REGION AND THIGH 09/24/2012 IRNA MINOR MD 719.45 PAIN IN JOINT INVOLVING [...] Performed By Performed On DARRYL UP 02/27/2012 68867 ROUTINE VENIPUNCTURE 05/04/2012 81949 UA LONG DIP 05/04/2012 55660 CBC 05/04/2012 16098 CMP 05/04/2012 [id number] GFR CALC (RESULT ONLY) 05/04/2012 42616 LITHIUM 05/04/2012 69809 TSH 05/04/2012 63380 ROUTINE VENIPUNCTURE 05/21/2012 80428 UA LONG DIP 05/21/2012 98455 CREATININE 05/22/2012 [id number] GFR CALC (RESULT ONLY) 05/22/2012 98347 LITHIUM 05/22/2012 56961 PSYTX PT&/FAMILY 45 MINUTES 06/18/2012 31182 THERAPUTIC INJ SQ/IM 07/06/2012 J2930 SOLUMEDROL INJ 07/06/2012 66409 PSYTX PT&/FAMILY 30 MINUTES 07/21/2012 36705 ROUTINE VENIPUNCTURE 08/19/2012 14596 PSYTX PT&/FAMILY 30 MINUTES 08/21/2012 32772 XRAY HIP RIGHT UNILATERAL MIN 2 VIEWS 09/24/2012 12966 ROUTINE VENIPUNCTURE 08/05/2013 [id number] GFR CALC (RESULT ONLY) 08/05/2013 82900 BMP 08/05/2013 92147 LITHIUM 08/05/2013 Results There is no data. Encounters ACCT No. Visit Date/Time Discharge Status Pt. Type Provider Facility Loc./Unit Complaint [id number] 06/21/2014 13:37:00 06/21/2014 23:59:59 CLS Outpatient [place] GRIGGS APRN [id number] 09/09/2013 12:03:00 09/09/2013 23:59:59 CLS Outpatient JESSICA GRIGGS APRNETTE [id number] 09/09/2013 12:03:00 09/09/2013 23:59:59 CLS Outpatient JESSICA GRIGGS APRNETTE [id number] 08/05/2013 13:47:00 08/05/2013 23:59:59 CLS Outpatient RINA MINOR MD [id number] 03/16/2013 12:41:00 03/16/2013 23:59:59 CLS Outpatient NAM PATTON APRN [id number] 12/08/2012 15:23:00 12/08/2012 23:59:59 CLS Outpatient NAM PATTON APRN [id number] 12/08/2012 15:23:00 12/08/2012 23:59:59 CLS Outpatient NAM PATTON APRN [id number] 09/24/2012 12:44:00 09/24/2012 23:59:59 CLS Outpatient MARILU AMANDA APRN [id number] 06/16/2012 11:04:00 06/16/2012 23:59:59 CLS Outpatient [id number] 05/21/2012 16:25:00 05/21/2012 23:59:59 CLS Outpatient SUSI GODFREY DO [id number] 05/04/2012 11:10:00 05/04/2012 23:59:59 CLS Outpatient GRIFFINSUSI JONES DO [id number] 03/20/2012 10:06:00 03/20/2012 23:59:59 CLS Outpatient CHIKIS CHILDERS DO [id number] 02/27/2012 09:25:00 02/27/2012 23:59:59 CLS Outpatient [id number] 01/02/2012 13:15:00 01/02/2012 23:59:59 CLS Outpatient GRIFFINSUSI JONES DO [id number] 08/19/2012 14:13:00 Document Registration [id number] 07/15/2012 15:03:00 Document Registration [id number] 07/13/2012 14:55:00 Document Registration [id number] 07/06/2012 14:11:00 Document Registration
[2017-03-21] MEDS ORDERED: ONDANSETRON 4 MG/2 ML (SDV) Z0FRAN IV PRN (05:45)
[2017-03-21] MEDS: NS IV 1000 ML 1,000 ML IV SCH ×3 (06:06→15:07)
[2017-03-21] MEDS ORDERED: INFLUENZA TRIvalent 2017-2018 0.5 ML/45 MCG SYR IM ONE (07:45)
[2017-03-21 08:57] LABS: CHOLESTEROL 183 MG/DL (< 200); HDL CHOLESTEROL 51 MG/DL (40-60); TRIGLYCERIDES 131 MG/DL (<150); VLDL CHOLESTEROL 26 MG/DL (5-40)
[2017-03-21] MEDS ORDERED: ASPIRIN E.C. 325 MG (ECOTRIN) TABLET PO SCH (09:00)
[2017-03-21] MEDS ORDERED: HYDR25TA4 PO (09:28)
[2017-03-21] MEDS ORDERED: TRAZ100T92 PO (09:28)
[2017-03-21] MEDS ORDERED: METO100T12 PO (09:28)
[2017-03-21] MEDS ORDERED: NFPROP80LA PO (09:28)
[2017-03-21] MEDS ORDERED: AMLO10TA2 PO (09:28)
[2017-03-21] MEDS ORDERED: LITH300C PO (09:28)
[2017-03-21] MEDS ORDERED: RISP3TAB3 PO (09:28)
[2017-03-21] MEDS ORDERED: ARIP15TA4 PO (09:33)
--- NOTE | 2017-03-21 09:35 | Consultation-Cardiology ---
HPI-Cardiology Cardiology Consultation: Date of Consultation 03/21/17 Date of Admission Attending Physician Naz Mayo MD Admitting Physician Tila,Local Physician Consulting Physician Nataliya SALDANA MD HPI: Time Seen by Provider: 09:45 Chief Complaint: Chest pain This is a 41-year-old gentleman who has history of depression. He presents with overdose with multiple medication including lithium and beta blockers. He also complained of chest pain 2 days ago. However he was not having any chest pain in the ER. He was significantly somnolent. He is not very enthusiastic in giving a history. However he denies chest pain during my interview as well as denies any other cardiac symptoms including palpitations or shortness of breath. Review of Systems-Cardiology Review of Systems Constitutional: No As described under HPI, No no symptoms reported, No chills, No fever, No lightheadedness, No malaise, No tiredness, No weight loss, No weight gain, No other Eyes: No As described under HPI, No no symptoms reported, No blindness, No blurred vision, No contact lenses, No drainage, No decreased acuity, No foreign body sensation, No glasses, No inflammation, No pain, No photophobia, No previous injury, No shadows, No tunnel vision, No other, No vision change Ears/Nose/Throat: No As described under HPI, No no symptoms reported, No chronic hearing loss, No epistaxis, No ear discharge, No ear pain, No loose teeth, No mouth pain, No mouth swelling, No nasal drainage, No nose pain, No recent hearing loss, No throat pain, No throat swelling, No ulcerations, No other Cardiovascular: chest pain Gastrointestinal: No no symptoms reported, No As described under HPI, No abdomen distended, No abdominal pain, No blood streaked bowels, No constipation , No diarrhea, No difficulty swallowing, No nausea, No poor appetite, No poor fluid intake, No rectal bleeding, No vomiting, No other, No nausea/vomiting/ diarrhea, No stool coloration changes Genitourinary: No no symptoms reported, No As described under HPI, No burning, No dysuria, No discharge, No frequency, No flank pain, No hematuria, No incontinence, No pain, No urgency, No other, No urine frequency changes, No urine coloration changes Musculoskeletal: No no symptoms reported, No As describe under HPI, No back pain, No gout, No joint pain, No joint swelling, No muscle pain, No muscle stiffness, No neck pain, No other Skin: No no symptoms reported, No As described under HPI, No change in color, No change in hair/nails, No dryness, No lesions, No lumps, No rash, No other, No skin related problems, No ulcerations, No rash on exposed areas, No ulcerations on exposed areas Psychiatric/Neurological: As described under HPI, depression, emotional problems Hematologic: No no symptoms reported, No As described under HPI, No anemia, No blood clots, No easy bleeding, No easy bruising, No swollen glands, No other, No bleeding abnormalities WTN-[id number]-Hslkrq Hx Patient Social History Alcohol Use: Denies Use Recreational Drug Use: No Smoking Status: Never a Smoker 2nd Hand Smoke Exposure: No Recent Foreign Travel: No Recent Infectious Disease Expo: No Hospitalization with Isolation: Denies Physical Abuse Screen: No Sexual Abuse: No Past Medical History PMH As described under Assessment. Allergies and Home Medications Allergies Coded Allergies: shellfish derived (Verified Allergy, Unknown, 08/18/16) Home Medications Amlodipine Besylate 10 Mg Tablet, 10 MG PO DAILY, (Reported) Aripiprazole 15 Mg Tablet, 15 MG PO DAILY, (Reported) Hydrochlorothiazide 25 Mg Tablet, 25 MG PO DAILY, (Reported) Metoprolol Tartrate 100 Mg Tablet, 100 MG PO BID, (Reported) LAST FILLED #60 01-23-17 Trazodone HCl 100 Mg Tablet, 100 MG PO HS, (Reported) LAST FILLED #30 01-23-17 Physical Exam-Cardiology Physical Exam Vital Signs/I&O Vital Sign - Last 12Hours 03/21/17 03/21/17 03/21/17 03/21/17 02:20 05:25 05:45 06:00 Temp 97.2 97.2 Pulse 75 67 61 64 Resp 11 01 22 18 B/P (MAP) 159/87 (111) 110/74 (86) 122/81 (95) Pulse Ox 99 99 95 97 O2 Delivery Room Air Room Air Room Air Room Air 03/21/17 03/21/17 03/21/17 03/21/17 06:15 06:31 07:00 07:00 Pulse 64 69 69 Resp 16 16 B/P (MAP) 117/77 (90) 118/72 (87) Pulse Ox 96 97 O2 Delivery Room Air Room Air Room Air 03/21/17 03/21/17 03/21/17 03/21/17 08:01 09:35 10:01 11:08 Pulse 57 58 55 56 Resp 15 14 14 14 B/P (MAP) 119/83 (95) 111/70 (84) 110/72 (85) 109/68 (82) Pulse Ox 97 98 99 98 O2 Delivery Room Air Room Air Room Air Room Air 03/21/17 12:00 Pulse 52 Resp 12 B/P (MAP) 113/73 (86) Pulse Ox 99 O2 Delivery Room Air Capillary Refill : Less Than 3 Seconds Constitutional: No appears stated age, No AAO x 3, No apparent distress, No PERRL, No well-developed, No well-nourished, No other HEENT: No PERRL, No normal ENT inspection, No TMs normal, No pharynx normal, No scleral icterus (R), No scleral icterus (L), No pale conjunctivae (R), No pale conjunctivae (L), No photophobia, No TM abnormal (R), No TM abnormal (L), No pharyngeal erythema, No tonsillar exudate, No other, No discharge, No EOMI, No hearing is well preserved, No hard of hearing, No oral hygience is good, No ulceration, No xanthelasmas are seen Neck: No non-tender, No full range of motion, No supple, No normal inspection, No carotid bruit, No limited range of motion, No lymphadenopathy (R), No lymphadenopathy (L), No tender lateral, No tender midline, No thyromegaly, No other, No carotid pulses are 2 + bilaterally, No with good upstrokes Respiratory: No accessory muscle use, No respiratory distress, No chest tender , No chest expansion is symmetric, No chest is bilaterally symmetric, No lungs clear to percussion, No lungs clear to auscultation, No crackles, No rhonchi, No rales, No stridor, No wheezing, No pleural rub, No other Cardiovascular: No regular rate-rhythm, No irregularly irregular, No extra beats, No parasternal heave is noted, No JVD, No edema, No bradycardia, No tachycardia, No point of maximal impulse, No cardiac thrills are palpable, No S1 and S2, No gallop/S3, No gallop/S4, No diastolic murmur, No systolic murmur, No friction rub, No click, No other Gastrointestinal: No tender, No soft, No round, No distended, No pulsatile mass , No organomegaly, No guarding, No rebound, No tenderness, No hernia, No mass, No audible bowel sounds, No abnormal bowel sounds, No abdominal bruits, No spleenomegaly, No other Rectal: deferred Extremities: No normal range of motion, No non-tender, No normal inspection, No pedal edema, No calf tenderness, No normal capillary refill, No pelvis stable , No calf tenderness, No inflammation, No pedal edema, No slow capillary refill , No swelling, No other, No abrasion, No clubbing, No cyanosis, No ecchymosis, No laceration, No no lower extremity edema bilateral, No significant edema, No tenderness, No wound Neurologic/Psychiatric: No integrated specialist II-XII nml as tested, No no motor/sensory deficits, No alert, No normal mood/affect, No oriented x 3, No abnormal cerebellar tests, No abnormal integrated specialist II-XII, No abnormal gait, No aphasia, No EOM palsy, No facial droop, No motor weakness, No sensory deficit, No depressed affect, No disoriented x 3, No other, No grossly intact, No power is 5/5 both on sides Skin: No normal color, No warm/dry, No cyanosis, No cool, No diaphoresis, No damp, No ecchymosis, No jaundice, No mottled, No pallor, No rash, No tattoos/ piercings, No ulcerations, No rash on exposed areas, No ulcerations on exposed areas, No other Data Review Labs Laboratory Tests 03/21/17 02:30: White Blood Count 10.9, Red Blood Count 5.06, Hemoglobin 14.5, Hematocrit 43, Mean Corpuscular Volume 85, Mean Corpuscular Hemoglobin 29, Mean Corpuscular Hemoglobin Concent 34, Red Cell Distribution Width 14.5, Platelet Count 272, Mean Platelet Volume 9.2, Neutrophils (%) (Auto) 65, Lymphocytes (%) (Auto) 25, Monocytes (%) (Auto) 8, Eosinophils (%) (Auto) 2, Basophils (%) (Auto) 0, Neutrophils # (Auto) 7.1, Lymphocytes # (Auto) 2.7, Monocytes # (Auto) 0.9, Eosinophils # (Auto) 0.2, Basophils # (Auto) 0.0, Sodium Level 140, Potassium Level 3.9, Chloride Level 103, Carbon Dioxide Level 24, Anion Gap 13, Blood Urea Nitrogen 12, Creatinine 1.22, Estimat Glomerular Filtration Rate > 60, BUN/ Creatinine Ratio 10, Glucose Level 126H, Calcium Level 9.3, Magnesium Level 2.5H , Total Bilirubin 0.4, Aspartate Amino Transf (AST/SGOT) 16, Alanine Aminotransferase (ALT/SGPT) 12, Alkaline Phosphatase 70, Troponin I < 0.30, Total Protein 7.1, Albumin 3.6, TSH [place] Testing 0.59, Salicylates Level < 5.0L, Acetaminophen Level < 10L, [place] Level 0.48 L, Serum Alcohol < 10 03/21/17 03:47: Urine Color YELLOW, Urine Clarity CLEAR, Urine pH 6.5, Urine Specific [place] 1.010L, Urine Protein NEGATIVE, Urine Glucose (UA) NEGATIVE, Urine Ketones NEGATIVE, Urine Nitrite NEGATIVE, Urine Bilirubin NEGATIVE, Urine Urobilinogen NORMAL, Urine Leukocyte Esterase NEGATIVE, Urine RBC (Auto) NEGATIVE, Urine RBC NONE, Urine WBC NONE, Urine Squamous Epithelial Cells 2-5, Urine Crystals NONE, Urine Bacteria NEGATIVE, Urine Casts NONE, Urine Mucus NEGATIVE, Urine Culture Indicated NO, Urine Opiates Screen NEGATIVE, Urine Oxycodone Screen NEGATIVE, Urine Methadone Screen NEGATIVE, Urine Propoxyphene Screen NEGATIVE, Urine Barbiturates Screen NEGATIVE, Ur Tricyclic Antidepressants Screen NEGATIVE, Urine Phencyclidine Screen NEGATIVE, Urine Amphetamines Screen POSITIVEH, Urine Methamphetamines Screen POSITIVEH, Urine Benzodiazepines Screen NEGATIVE, Urine Cocaine Screen NEGATIVE, Urine Cannabinoids Screen NEGATIVE 03/21/17 04:30: [place] Level 1.45 H 03/21/17 08:28: Troponin I < 0.30, Triglycerides Level 131, Cholesterol Level 183, LDL Cholesterol Direct 101, VLDL Cholesterol 26, HDL Cholesterol 51 ECG Impression ECG Initial ECG Rhythm: Normal Sinus Comment Sinus rhythm with early repolarization pattern in leads V2. A/P-Cardiology Assessment/Admission Diagnosis 1. Suicide attempt with drug overdose. 2. Overdose with lithium and beta blockers. 3. Chest pain. 4. Abnormal EKG. Plan 1. Suicide attempt with drug overdose - psychiatry consultation. Defer to the primary team. 2. Overdose with lithium and beta blockers. EKG to monitor lithium overdose. Continue telemetry for beta blockers. 3. Chest pain. Patient denies smoking. Acute coronary syndrome has been ruled out with negative serial troponins. Once medically cleared may require a stress test. Request an echocardiogram. 4. Abnormal EKG. early repolarization. Not acute [place]. Thank you for your consultation. Please call me if you have any questions. Rosita Saldana MD, FACP, FACC, [facility], FHRS, CCDS Interventional Cardiology Cardiac Electrophysiology Vascular Medicine and Endovascular Interventions Clinical Quality Measures DVT/VTE Risk/Contraindication: Risk Factor Score Per Nursin RFS Level Per Nursing on Admit: 1=Low/No VTE PPX Nataliya SALDANA MD Mar 21, 2017 09:35
--- NOTE | 2017-03-21 11:54 | Short Stay Summary ---
History of Present Illness History of Present Illness Date of Admission Mar 21, 2017 at 03:54 Date of Discharge Attending Physician Juan J Silva MD Admitting Physician No,Local Physician Consult Allergies and Home Medications Allergies Coded Allergies: shellfish derived (Verified Allergy, Unknown, 08/18/16) Home Medications Amlodipine Besylate 10 Mg Tablet, 10 MG PO DAILY, (Reported) Aripiprazole 15 Mg Tablet, 15 MG PO DAILY, (Reported) Hydrochlorothiazide 25 Mg Tablet, 25 MG PO DAILY, (Reported) Metoprolol Tartrate 100 Mg Tablet, 100 MG PO BID, (Reported) LAST FILLED #60 01-23-17 Trazodone HCl 100 Mg Tablet, 100 MG PO HS, (Reported) LAST FILLED #30 01-23-17 Past [id number] Hx Patient Social History Alcohol Use: Denies Use Recreational Drug Use: No Smoking Status: Never a Smoker 2nd Hand Smoke Exposure: No Physical Abuse Screen: No Sexual Abuse: No Recent Foreign Travel: No Contact w/other who traveled: No Recent Hopitalizations: No Recent Infectious Disease Expo: No Seasonal Allergies Seasonal Allergies: No Surgeries No Respiratory No Cardiovascular Yes Hypertension Neurological No Reproductive System Hx Reproductive Disorders: No Genitourinary No Gastrointestinal No Musculoskeletal No Endocrine History of Endocrine Disorders: No HEENT History of HEENT Disorders: No Cancer No Psychosocial History of Psychiatric Problem: Yes Behavioral Health Disorders: Bipolar, Depression Integumentary History of Skin or Integumenta: No Blood Transfusions History of Blood Disorders: No Physical Exam Vital Signs Vital Sign - Last 12Hours 03/21/17 02:20 Temp 97.2 Pulse 75 Resp 11 B/P (MAP) 159/87 (111) Pulse Ox 99 O2 Delivery Room Air Capillary Refill : Less Than 3 Seconds Clinical Quality Measures DVT/VTE Risk/Contraindication: Risk Factor Score Per Nursin RFS Level Per Nursing on Admit: 1=Low/No VTE PPX Short Stay Diagnosis Conclusion Labs Laboratory Tests 03/21/17 02:30: White Blood Count 10.9, Red Blood Count 5.06, Hemoglobin 14.5, Hematocrit 43, Mean Corpuscular Volume 85, Mean Corpuscular Hemoglobin 29, Mean Corpuscular Hemoglobin Concent 34, Red Cell Distribution Width 14.5, Platelet Count 272, Mean Platelet Volume 9.2, Neutrophils (%) (Auto) 65, Lymphocytes (%) (Auto) 25, Monocytes (%) (Auto) 8, Eosinophils (%) (Auto) 2, Basophils (%) (Auto) 0, Neutrophils # (Auto) 7.1, Lymphocytes # (Auto) 2.7, Monocytes # (Auto) 0.9, Eosinophils # (Auto) 0.2, Basophils # (Auto) 0.0, Sodium Level 140, Potassium Level 3.9, Chloride Level 103, Carbon Dioxide Level 24, Anion Gap 13, Blood Urea Nitrogen 12, Creatinine 1.22, Estimat Glomerular Filtration Rate > 60, BUN/ Creatinine Ratio 10, Glucose Level 126H, Calcium Level 9.3, Magnesium Level 2.5H , Total Bilirubin 0.4, Aspartate Amino Transf (AST/SGOT) 16, Alanine Aminotransferase (ALT/SGPT) 12, Alkaline Phosphatase 70, Troponin I < 0.30, Total Protein 7.1, Albumin 3.6, TSH [place] Testing 0.59, Salicylates Level < 5.0L, Acetaminophen Level < 10L, [place] Level 0.48 L, Serum Alcohol < 10 03/21/17 03:47: Urine Color YELLOW, Urine Clarity CLEAR, Urine pH 6.5, Urine Specific [place] 1.010L, Urine Protein NEGATIVE, Urine Glucose (UA) NEGATIVE, Urine Ketones NEGATIVE, Urine Nitrite NEGATIVE, Urine Bilirubin NEGATIVE, Urine Urobilinogen NORMAL, Urine Leukocyte Esterase NEGATIVE, Urine RBC (Auto) NEGATIVE, Urine RBC NONE, Urine WBC NONE, Urine Squamous Epithelial Cells 2-5, Urine Crystals NONE, Urine Bacteria NEGATIVE, Urine Casts NONE, Urine Mucus NEGATIVE, Urine Culture Indicated NO, Urine Opiates Screen NEGATIVE, Urine Oxycodone Screen NEGATIVE, Urine Methadone Screen NEGATIVE, Urine Propoxyphene Screen NEGATIVE, Urine Barbiturates Screen NEGATIVE, Ur Tricyclic Antidepressants Screen NEGATIVE, Urine Phencyclidine Screen NEGATIVE, Urine Amphetamines Screen POSITIVEH, Urine Methamphetamines Screen POSITIVEH, Urine Benzodiazepines Screen NEGATIVE, Urine Cocaine Screen NEGATIVE, Urine Cannabinoids Screen NEGATIVE 03/21/17 04:30: [place] Level 1.45 H 03/21/17 08:28: Troponin I < 0.30, Triglycerides Level 131, Cholesterol Level 183, LDL Cholesterol Direct 101, VLDL Cholesterol 26, HDL Cholesterol 51 JUAN J SILVA MD Mar 21, 2017 11:54
--- NOTE | 2017-03-21 13:17 | Short Stay Summary ---
History of Present Illness History of Present Illness Reason for visit/HPI History as reported from ED as patient is hypersomnolent at time of assessment. In the ED, he reported taking a handful of medications with the intent of committing suicide. He reported taking an unknown amount of lithium, Trazadone, Risperdal, Inderal, and metoprolol. He reported to the ED that he is homeless at this time. He sees behavioral health at the [facility]; his last appointment was on 03/20/17. According to clinic record, he had been hospitalized at [place] for suicidal ideation (not attempt) in February and was released just before [place]. He was supposed to follow-up with them, but never did. At yesterday' s appointment, he repeatedly denied having any suicidal thoughts. Date of Admission Mar 21, 2017 at 03:54 Date of Discharge Mar 21, 2017 Time Seen by Provider: 10:15 Attending Physician Naz Mayo MD Admitting Physician Tila,Local Physician Consult Allergies and Home Medications Allergies Coded Allergies: shellfish derived (Verified Allergy, Unknown, 08/18/16) Home Medications Amlodipine Besylate 10 Mg Tablet, 10 MG PO DAILY, (Reported) Aripiprazole 15 Mg Tablet, 15 MG PO DAILY, (Reported) Hydrochlorothiazide 25 Mg Tablet, 25 MG PO DAILY, (Reported) Metoprolol Tartrate 100 Mg Tablet, 100 MG PO BID, (Reported) LAST FILLED #60 01-23-17 Trazodone HCl 100 Mg Tablet, 100 MG PO HS, (Reported) LAST FILLED #30 01-23-17 Past [id number]-Dhjnzz Hx Patient Social History Marrital Status: Alcohol Use: Denies Use Recreational Drug Use: No Smoking Status: Never a Smoker 2nd Hand Smoke Exposure: No Physical Abuse Screen: No Sexual Abuse: No Recent Foreign Travel: No Contact w/other who traveled: No Recent Hopitalizations: No Recent Infectious Disease Expo: No Seasonal Allergies Seasonal Allergies: No Surgeries No Respiratory No Cardiovascular Yes Hypertension Neurological No Reproductive System Hx Reproductive Disorders: No Genitourinary No Gastrointestinal No Musculoskeletal No Endocrine History of Endocrine Disorders: No HEENT History of HEENT Disorders: No Cancer No Psychosocial History of Psychiatric Problem: Yes Behavioral Health Disorders: Bipolar, Depression Integumentary History of Skin or Integumenta: No Blood Transfusions History of Blood Disorders: No ROS-Unable to Obtain: Unable to obtain ROS this morning due to hypersomnolence Constitutional: other (Unable to obtain due to hypersomnolence) Physical Exam Vital Signs Vital Sign - Last 12Hours 03/21/17 02:20 Temp 97.2 Pulse 75 Resp 11 B/P (MAP) 159/87 (111) Pulse Ox 99 O2 Delivery Room Air Capillary Refill : Less Than 3 Seconds General Appearance: Other (asleep and barely arousable this morning ) Neck: Normal Inspection, Non Tender, Supple, No Thyromegaly Respiratory: Chest Non Tender, Lungs Clear, Normal Breath Sounds, No Respiratory Distress Cardiovascular: Regular Rate, Rhythm, No Edema, No Murmur Gastrointestinal: Normal Bowel Sounds, No Organomegaly, Soft Extremity: Normal Inspection, No Pedal Edema Neurologic/Psychiatric: No Alert Skin: Normal Color, Warm/Dry Clinical Quality Measures DVT/VTE Risk/Contraindication: Risk Factor Score Per Nursin RFS Level Per Nursing on Admit: 1=Low/No VTE PPX Short Stay Diagnosis Discharge Diagnosis-Short Stay Admission Diagnosis: 1. Suicide attempt by drug overdose 2. [place] toxicity 3. ST elevation 4. Methamphetamine use 5. Bipolar disorder 6. Major Depressive disorder 7. Hypertension Final Discharge Diagnosis: 1. Suicide attempt by drug overdose: Overdosed on unknown amounts of Abilify, trazadone, metoprolol. Poison control contacted and recommended serial [place] amounts (about every 2 hours) to assess for toxicity. [facility] has to send lithium off site, so [facility] was contacted and was asked to monitor him in-patient. Poison control also recommended doing serial EKGs every 4-6 hours. One was completed in the ED, which showed ST elevation in 1 lead. Recommend in-patient psychiatric care once cleared medically from overdose. 2. [place] toxicity: Poison control contacted about the overdose and recommended serial lithium levels every 2 hours to assess for toxicity. [place] drawn at 04:30 this morning reading 1.45, another reading pending. [place] draws must be read off site for [facility], so [facility] was contacted and is going to take the patient today as to ensure [place] can be monitored as recommended by poison control. 3. ST elevation: Poison control contacted about the overdose and recommended to do serial EKGs on the patient. EKG in the ED showed sinus rhythm with borderline left axis deviation and isolated ST elevation in V2. Cardiology saw patient today and reported no acute [place] due to negative toponins, continue EKG monitoring due to beta-jose manuel overdose, and stress test once cleared medically. 4. Methamphetamine use: Recommend ATS along with psychiatric care after discharged medically. 5. Bipolar disorder: Chronic On Abilify. 6. Major Depressive disorder: Chronic On Trazodone. 7. Hypertension: Chronic On Metoprolol Conclusion Labs Laboratory Tests 03/21/17 02:30: White Blood Count 10.9, Red Blood Count 5.06, Hemoglobin 14.5, Hematocrit 43, Mean Corpuscular Volume 85, Mean Corpuscular Hemoglobin 29, Mean Corpuscular Hemoglobin Concent 34, Red Cell Distribution Width 14.5, Platelet Count 272, Mean Platelet Volume 9.2, Neutrophils (%) (Auto) 65, Lymphocytes (%) (Auto) 25, Monocytes (%) (Auto) 8, Eosinophils (%) (Auto) 2, Basophils (%) (Auto) 0, Neutrophils # (Auto) 7.1, Lymphocytes # (Auto) 2.7, Monocytes # (Auto) 0.9, Eosinophils # (Auto) 0.2, Basophils # (Auto) 0.0, Sodium Level 140, Potassium Level 3.9, Chloride Level 103, Carbon Dioxide Level 24, Anion Gap 13, Blood Urea Nitrogen 12, Creatinine 1.22, Estimat Glomerular Filtration Rate > 60, BUN/ Creatinine Ratio 10, Glucose Level 126H, Calcium Level 9.3, Magnesium Level 2.5H , Total Bilirubin 0.4, Aspartate Amino Transf (AST/SGOT) 16, Alanine Aminotransferase (ALT/SGPT) 12, Alkaline Phosphatase 70, Troponin I < 0.30, Total Protein 7.1, Albumin 3.6, TSH [place] Testing 0.59, Salicylates Level < 5.0L, Acetaminophen Level < 10L, [place] Level 0.48 L, Serum Alcohol < 10 03/21/17 03:47: Urine Color YELLOW, Urine Clarity CLEAR, Urine pH 6.5, Urine Specific [place] 1.010L, Urine Protein NEGATIVE, Urine Glucose (UA) NEGATIVE, Urine Ketones NEGATIVE, Urine Nitrite NEGATIVE, Urine Bilirubin NEGATIVE, Urine Urobilinogen NORMAL, Urine Leukocyte Esterase NEGATIVE, Urine RBC (Auto) NEGATIVE, Urine RBC NONE, Urine WBC NONE, Urine Squamous Epithelial Cells 2-5, Urine Crystals NONE, Urine Bacteria NEGATIVE, Urine Casts NONE, Urine Mucus NEGATIVE, Urine Culture Indicated NO, Urine Opiates Screen NEGATIVE, Urine Oxycodone Screen NEGATIVE, Urine Methadone Screen NEGATIVE, Urine Propoxyphene Screen NEGATIVE, Urine Barbiturates Screen NEGATIVE, Ur Tricyclic Antidepressants Screen NEGATIVE, Urine Phencyclidine Screen NEGATIVE, Urine Amphetamines Screen POSITIVEH, Urine Methamphetamines Screen POSITIVEH, Urine Benzodiazepines Screen NEGATIVE, Urine Cocaine Screen NEGATIVE, Urine Cannabinoids Screen NEGATIVE 03/21/17 04:30: [place] Level 1.45 H 03/21/17 08:28: Troponin I < 0.30, Triglycerides Level 131, Cholesterol Level 183, LDL Cholesterol Direct 101, VLDL Cholesterol 26, HDL Cholesterol 51 03/21/17 12:48: Conclusion/Plan [facility] was contacted for transfer of patient due to lack of ability to complete serial lithium levels at this facility. They reported that they would be able to take him today. Recommend in-patient psychiatric treatment and addiction treatment assessment once discharged medically from the overdose. Poison control recommended [place] levels every 2 hours and EKGs every 4-6 hours. JUAN PADGETT STUDENT Mar 21, 2017 13:17
== END 2017-03-21 16:25 | disposition short-term general hospital (02) | DRG 918 ==
LOC: EDUNIT# 02:08 → ER 02:11 → ICU 03:54
PROVIDERS: ADMIT Pediatrics; ATTEND Pediatrics
DX: T43.592A Poisoning by other antipsychotics and neuroleptics, intentional self-harm, initial encounter (principal); T43.212A Poisoning by selective serotonin and norepinephrine reuptake inhibitors, intentional self-harm, initial encounter; T43.502A Poisoning by unspecified antipsychotics and neuroleptics, intentional self-harm, initial encounter; T44.7X2A Poisoning by beta-adrenoreceptor antagonists, intentional self-harm, initial encounter; T56.892A Toxic effect of other metals, intentional self-harm, initial encounter; I10 Essential (primary) hypertension; F31.9 Bipolar disorder, unspecified; R40.0 Somnolence; F15.90 Other stimulant use, unspecified, uncomplicated
CPT/HCPCS: 36415; 80053; 80061; 80178; 80306; 80320; 80329; 81000; 83735; 84443; 84484; 85025; 87081; 93005; 93041; 93306

== ENCOUNTER 2017-09-05 19:30 | Emergency (ER) | payer MEDICAID, OTHER ==
[~2017-09-05] VITALS: Ht 167.6 cm; Wt 84.8 kg
[~2017-09-05 19:30] MED LIST changes: +AMLO10TA2 PO; +ARIP15TA4 PO; +HYDR25TA4 PO; +LITH300C PO; +METO100T12 PO; +NFPROP80LA PO; +RISP3TAB3 PO; +TRAZ-190 PO
[2017-09-05 19:32] VITALS: BP 151/105
[2017-09-05] MEDS ORDERED: NITROGLYCERIN 0.4 MG SL TABS BTL 25'S SL ONE (19:43)
[2017-09-05] MEDS ORDERED: ASPIRIN 81 MG CHEW (CHILDREN'S ASA) ONE (19:43)
[2017-09-05] MEDS ORDERED: ASPIRIN 81 MG CHEW (CHILDREN'S ASA) PO ONE (19:45)
[2017-09-05] MEDS: NITROGLYCERIN 0.4 MG SL TABS BTL 25'S SL PRN ×2 (19:45→20:36)
--- NOTE | 2017-09-05 19:48 | ED Chest Pain ---
General Chief Complaint: Chest Pain Stated Complaint: L SIDE CHEST PAIN Nursing Triage Note: PT PRESENTS TO ER WITH COMPLAINT OF CHEST PAIN. STATES HE HAS USED METH RECENTLY. Nursing Sepsis Screen: No Definite Risk Source: patient Exam Limitations: no limitations History of Present Illness Date Seen by Provider: Sep 05, 2017 Time Seen by Provider: 19:45 Initial Comments o ER with left-sided chest pain described as a pressure rated 7 out of 10that began 2 hours ago while walking. He does report some mild associated shortness of breath. He has used methamphetamine recently but does not specify how recently. He's had similar chest pains on the of this month when he was in residential but he was not evaluated at that time. 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 NTG SL SUPERVISOR NEWSPAPER DELIVERIES: No Associated Symptoms: No nausea/vomiting; shortness of breath Allergies and Home Medications Allergies Coded Allergies: shellfish derived (Verified Allergy, Unknown, 08/18/16) Home Medications Amlodipine Besylate 10 Mg Tablet, 10 MG PO DAILY, (Reported) Aripiprazole 15 Mg Tablet, 15 MG PO DAILY, (Reported) Hydrochlorothiazide 25 Mg Tablet, 25 MG PO DAILY, (Reported) Metoprolol Tartrate 100 Mg Tablet, 100 MG PO BID, (Reported) LAST FILLED #60 01-23-17 Trazodone HCl 100 Mg Tablet, 100 MG PO HS, (Reported) LAST FILLED #30 01-23-17 Patient Home Medication List Home Medication List Reviewed: Yes Review of Systems Constitutional: see HPI EENTM: No Symptoms Reported Respiratory: No Symptoms Reported Cardiovascular: See HPI, Chest Pain Gastrointestinal: No Symptoms Reported Genitourinary: No Symptoms Reported Musculoskeletal: no symptoms reported Skin: no symptoms reported Psychiatric/Neurological: No Symptoms Reported Endocrine: No Symptoms Reported Past Hrhssgt-Fgiwzo-Fhvnod Hx Patient Social History Alcohol Use: Occasionally Uses Recreational Drug Use: Yes Drug of Choice: METH Smoking Status: Never a Smoker 2nd Hand Smoke Exposure: No Recent Foreign Travel: No Contact w/Someone Who Travel: No Recent Infectious Disease Expo: No Recent Hopitalizations: No Immunizations Up To Date Tetanus Booster (TDap): Unknown Seasonal Allergies Seasonal Allergies: No Past Medical History Surgeries: No Respiratory: No Cardiac: Yes Hypertension Neurological: No Reproductive Disorders: No Genitourinary: No Gastrointestinal: No Musculoskeletal: No Endocrine: No HEENT: No Cancer: No Psychosocial: Yes Bipolar, Depression Integumentary: No Blood Disorders: No Physical Exam Vital Signs Vital Signs - First Documented 09/05/17 19:32 Temp 99.5 Pulse 97 Resp 33 B/P (MAP) 151/105 (120) Pulse Ox 97 O2 Delivery Room Air Capillary Refill : Less Than 3 Seconds General Appearance: No Apparent Distress, WD/WN HEENT: PERRL/EOMI, TMs Normal Neck: Full Range of Motion, Normal Inspection Respiratory: Lungs Clear, Normal Breath Sounds, No Accessory Muscle Use, No Respiratory Distress Gastrointestinal: Normal Bowel Sounds, Non Tender, Soft Extremity: Normal Capillary Refill, Normal Inspection Neurologic/Psychiatric: Alert, Oriented x3 Skin: Normal Color, Warm/Dry Progress/Results/Core Measures Results/Orders Lab Results Laboratory Tests Test 09/05/17 19:42 09/05/17 20:22 Range/Units White Blood Count 9.8 4.3-11.0 10^3/uL Red Blood Count 5.01 4.35-5.85 10^6/uL Hemoglobin 14.1 13.3-17.7 G/DL Hematocrit 41 40-54 % Mean Corpuscular Volume 82 80-99 FL Mean Corpuscular Hemoglobin 28 25-34 PG Mean Corpuscular Hemoglobin Concent 34 32-36 G/DL Red Cell Distribution Width 14.1 10.0-14.5 % Platelet Count 329 130-400 10^3/uL Mean Platelet Volume 9.5 7.4-10.4 FL Neutrophils (%) (Auto) 61 42-75 % Lymphocytes (%) (Auto) 26 12-44 % Monocytes (%) (Auto) 12 0-12 % Eosinophils (%) (Auto) 1 0-10 % Basophils (%) (Auto) 0 0-10 % Neutrophils # (Auto) 5.9 1.8-7.8 X 10^3 Lymphocytes # (Auto) 2.5 1.0-4.0 X 10^3 Monocytes # (Auto) 1.2 H 0.0-1.0 X 10^3 Eosinophils # (Auto) 0.1 0.0-0.3 10^3/uL Basophils # (Auto) 0.0 0.0-0.1 10^3/uL Prothrombin Time 13.1 12.2-14.7 SEC INR Comment 1.0 0.8-1.4 Activated Partial Thromboplast Time 29 24-35 SEC D-Dimer 0.51 H 0.00-0.49 UG/ML Sodium Level 139 135-145 MMOL/L Potassium Level 3.7 3.6-5.0 MMOL/L Chloride Level 103 98-107 MMOL/L Carbon Dioxide Level 18 L 21-32 MMOL/L Anion Gap 18 H 5-14 MMOL/L Blood Urea Nitrogen 18 7-18 MG/DL Creatinine 1.13 0.60-1.30 MG/DL Estimat Glomerular Filtration Rate > 60 BUN/Creatinine Ratio 16 Glucose Level 93 70-105 MG/DL Calcium Level 9.5 8.5-10.1 MG/DL Magnesium Level 2.5 H 1.8-2.4 MG/DL Total Bilirubin 0.5 0.1-1.0 MG/DL Aspartate Amino Transf (AST/SGOT) 40 H 5-34 U/L Alanine Aminotransferase (ALT/SGPT) 30 0-55 U/L Alkaline Phosphatase 68 40-136 U/L Myoglobin 182.4 H 10.0-92.0 NG/ML Troponin I < 0.30 <0.30 NG/ML B-Type Natriuretic Peptide < 10.0 <100.0 PG/ML Total Protein 7.6 6.4-8.2 GM/DL Albumin 3.9 3.2-4.5 GM/DL Urine Opiates Screen NEGATIVE NEGATIVE Urine Oxycodone Screen NEGATIVE NEGATIVE Urine Methadone Screen NEGATIVE NEGATIVE Urine Propoxyphene Screen NEGATIVE NEGATIVE Urine Barbiturates Screen NEGATIVE NEGATIVE Ur Tricyclic Antidepressants Screen NEGATIVE NEGATIVE Urine Phencyclidine Screen NEGATIVE NEGATIVE Urine Amphetamines Screen POSITIVE H NEGATIVE Urine Methamphetamines Screen POSITIVE H NEGATIVE Urine Benzodiazepines Screen NEGATIVE NEGATIVE Urine Cocaine Screen NEGATIVE NEGATIVE Urine Cannabinoids Screen NEGATIVE NEGATIVE My Orders Orders - ALLI PIZARRO APRN Cbc With Automated Diff (09/05/17 19:44) Magnesium (09/05/17 19:44) Chest 1 View, Ap/Pa Only (09/05/17 19:44) Ekg Tracing (09/05/17 19:44) Cardiac Profile 1 (09/05/17 19:44) Comprehensive Metabolic Panel (09/05/17 19:44) Myoglobin Serum (09/05/17 19:44) Protime With Inr (09/05/17 19:44) Partial Thromboplastin Time (09/05/17 19:44) O2 (09/05/17 19:44) Monitor-Rhythm Ecg Trace Only (09/05/17 19:44) Lipid Panel (09/06/17 06:00) Aspirin Chewable Tablet (Baby Aspirin Ch (09/05/17 19:45) Nitroglycerin 0.4 Mg Btl 25's (Nitrostat (09/05/17 19:45) Saline Lock/Iv-Start (09/05/17 19:44) BNP (09/05/17 19:44) Fibrin Degradation Products (09/05/17 19:44) Drug Screen Stat (Urine) (09/05/17 19:44) Nitroglycerin 0.4 Mg Btl 25's (Nitrostat (09/05/17 19:43) Aspirin Chewable Tablet (Baby Aspirin Ch (09/05/17 19:43) Ct Angio Chest W (09/05/17 20:28) Iohexol Injection (Omnipaque 350 Mg/Ml 1 (09/05/17 20:30) Sodium Chloride Flush (Catheter Flush Sy (09/05/17 20:30) Ns (Ivpb) (Sodium Chloride 0.9%) (09/05/17 20:30) Pharmacy Communication (Pharmacy Communi (09/05/17 20:30) Medications Given in ED Current Medications Medications Dose Ordered Sig/Rosibel Route Start Time Stop Time Status Last Admin Dose Admin Aspirin 324 mg ONCE ONCE PO 09/05/17 19:45 09/05/17 19:46 DC 09/05/17 19:44 324 MG Iohexol 150 ml ONCE ONCE IV 09/05/17 20:30 09/05/17 20:31 DC 09/05/17 20:43 125 ML Nitroglycerin 0.4 mg UD PRN SL 09/05/17 19:45 09/05/17 20:36 0.4 MG Sodium Chloride 10 ml NEEDED PRN IV 09/05/17 20:30 09/05/17 20:44 10 ML Sodium Chloride 250 ml ONCE ONCE IV 09/05/17 20:30 09/05/17 20:31 DC 09/05/17 20:43 80 ML Vital Signs/I&O 09/05/17 19:32 Temp 99.5 Pulse 97 Resp 33 B/P (MAP) 151/105 (120) Pulse Ox 97 O2 Delivery Room Air Blood Pressure Mean: 120 Initial ECG Impression Date: Sep 05, 2017 Initial ECG Impression Time: 19:34 Initial ECG Rate: 93 Initial ECG Rhythm: Normal Sinus Initial ECG Impression: Nonspecific Changes Initial ECG Comparisson: No Previous ECG Available Diagnostic Imaging Diagonstic Imaging: Xray Plain Films/CT/US/NM/MRI: chest Comments NAME: CLEM GUTIERREZ [facility] REC#: [id number] PT STATUS: REG ER : 1975 PHYSICIAN: ALLI PIZARRO APRN ADMIT DATE: 09/05/17/ER Draft Date of Exam:09/05/17 CHEST 1 VIEW, AP/PA ONLY INDICATION: Chest pain. EXAMINATION: Chest dated 09/05/2017. COMPARISON: No priors. FINDINGS: There is cardiomegaly. The pulmonary vasculature is unremarkable. Lungs clear with no infiltrates or effusions. There is no pneumothorax. IMPRESSION: 1. Cardiomegaly. Otherwise negative chest. Dictated on workstation # [id number] Dict: 09/05/171999 Trans: 09/05/172001 [id number] Interpreted by: CHRISTIANE MEJIA MD Electronically signed by: Departure Communication (Admissions) 2119- patient was here in March of this year with an EKG done. There are no changes from today's EKG when compared to the March EKG. His initial troponin was negative. The sublingual nitroglycerin did improve but not completely resolve his pain. 2146-I did discuss with the patient the need for hospital observation for repeat cardiac enzymes and evaluation by cardiology. I discussed with him that initially the cardiac labs troponin may be falsely negative despitean acute coronary syndrome if not given adequate time to elevate after the ischemic event. Since his chest pain onset was only 2 hours prior to arrival he would warrant observation in the hospital overnight with repeat labs. He does not wish to stay and will sign out AGAINST MEDICAL ADVICE. Impression Primary Impression: Chest pain Qualified Codes: R07.9 - Chest pain, unspecified Disposition: 07 AGAINST MEDICAL ADVICE Condition: Against Medical Advice Departure-Patient Inst. Referrals: [facility] (PCP/Family) Primary Care Physician ALLI PIZARRO APRN Sep 05, 2017 19:48
[2017-09-05 19:49] LABS: BASOPHILS % (AUTO) 0 % (0-10); EOSINOPHILS # (AUTO) 0.1 10^3/uL (0.0-0.3); EOSINOPHILS % (AUTO) 1 % (0-10); HEMATOCRIT 41 % (40-54); HEMOGLOBIN 14.1 G/DL (13.3-17.7); LYMPHOCYTES # (AUTO) 2.5 X 10^3 (1.0-4.0); LYMPHOCYTES % (AUTO) 26 % (12-44); MEAN CORPUSCULAR HEMOGLOBIN 28 PG (25-34); MEAN CORPUSCULAR HGB CONC 34 G/DL (32-36); MEAN CORPUSCULAR VOLUME 82 FL (80-99); MEAN PLATELET VOLUME 9.5 FL (7.4-10.4); MONOCYTES # (AUTO) 1.2 X 10^3 (0.0-1.0); MONOCYTES % (AUTO) 12 % (0-12); NEUTROPHILS # (AUTO) 5.9 X 10^3 (1.8-7.8); NEUTROPHILS % (AUTO) 61 % (42-75); PLATELET COUNT 329 10^3/uL (130-400); RED BLOOD COUNT 5.01 10^6/uL (4.35-5.85); RED CELL DISTRIBUTION WIDTH 14.1 % (10.0-14.5); WHITE BLOOD COUNT 9.8 10^3/uL (4.3-11.0)
[2017-09-05 20:01] LABS: PROTHROMBIN TIME PATIENT 13.1 SEC (12.2-14.7)
--- NOTE | 2017-09-05 20:02 | Diagnostic Imaging Report ---
INDICATION: Chest pain. EXAMINATION: Chest dated 09/05/2017. COMPARISON: No priors. FINDINGS: There is cardiomegaly. The pulmonary vasculature is unremarkable. Lungs clear with no infiltrates or effusions. There is no pneumothorax. IMPRESSION: 1. Cardiomegaly. Otherwise negative chest. Dictated by: Dictated on workstation # [id number]
[2017-09-05 20:10] LABS: ALANINE AMINOTRANSFERASE 30 U/L (0-55); ALBUMIN 3.9 GM/DL (3.2-4.5); ALKALINE PHOSPHATASE 68 U/L (40-136); BILIRUBIN,TOTAL 0.5 MG/DL (0.1-1.0); BUN/CREATININE RATIO 16; CALCIUM 9.5 MG/DL (8.5-10.1); CARBON DIOXIDE 18 MMOL/L (21-32); CHLORIDE 103 MMOL/L (98-107); CREATININE SERUM 1.13 MG/DL (0.60-1.30); GFR ESTIMATED > 60; GLUCOSE 93 MG/DL (70-105); MAGNESIUM 2.5 MG/DL (1.8-2.4); POTASSIUM 3.7 MMOL/L (3.6-5.0); SODIUM 139 MMOL/L (135-145); TOTAL PROTEIN 7.6 GM/DL (6.4-8.2)
[2017-09-05 20:17] LABS: MYOGLOBIN SERUM 182.4 NG/ML (10.0-92.0)
[2017-09-05] MEDS ORDERED: IOHEXOL 350 MG/ML 150 ML (OMNIPAQUE 350) VIAL IV ONE (20:30)
[2017-09-05] MEDS ORDERED: CATHETER FLUSH 10 ML SYR IV PRN (20:30)
[2017-09-05] MEDS ORDERED: NS 250 ML (IVPB) BAG IV ONE (20:30)
[2017-09-05 20:46] LABS: AMPHETAMINE SCREEN, URINE POSITIVE (NEGATIVE); BARBITURATE SCREEN URINE NEGATIVE (NEGATIVE); BENZODIAZEPINES SCREEN URINE NEGATIVE (NEGATIVE); CANNABINOID SCREEN, URINE NEGATIVE (NEGATIVE); COCAINE SCREEN URINE NEGATIVE (NEGATIVE); METHADONE STAT NEGATIVE (NEGATIVE); METHAMPHETAMINE SCREEN URINE S POSITIVE (NEGATIVE); OPIATE SCREEN URINE NEGATIVE (NEGATIVE); OXYCODONE STAT NEGATIVE (NEGATIVE); PROPOXYPHENE STAT NEGATIVE (NEGATIVE); TRICYCLIC ANTIDEPRESSANTS SCRE NEGATIVE (NEGATIVE)
--- NOTE | 2017-09-05 21:37 | Diagnostic Imaging Report ---
PROCEDURE: CT angiography of the chest with contrast. TECHNIQUE: Multiple contiguous axial images were obtained through the chest after uneventful bolus administration of intravenous contrast. Reconstructed CTA MIP acquisitions were also performed. INDICATION: Left-sided chest pain off-and-on for last 2 weeks. No PSH or cancer. EXAMINATION: CT angiogram of the chest with contrast dated 09/05/2017 No prior. FINDINGS: There are no central or proximal segmental pulmonary emboli. The thoracic aorta is unremarkable for acute abnormality. The ascending aorta appears slightly prominent and measures approximately 3.5 cm in size. There are no pericardial or pleural effusions. The heart appears slightly prominent. No hilar or mediastinal nor axillary adenopathy appreciated. The lungs demonstrate no acute disease. No pneumothorax or mass is appreciated. Visualized upper abdominal structures demonstrate diffuse fatty infiltration within the visualized liver. Left adrenal gland slightly prominent perhaps due to hyperplasia. There is a suspected small hiatal hernia. Bilateral gynecomastia noted fairly symmetric. The osseous structures unremarkable for acute abnormality. IMPRESSION: 1. No evidence for pulmonary embolus. 2. Incidental findings as discussed above with no acute process appreciated. Dictated by: Dictated on workstation # [id number]
== END 2017-09-05 21:53 | disposition left against medical advice (07) ==
LOC: EDUNIT# 19:30 → ER 19:31
DX: R07.89 Other chest pain (principal); I10 Essential (primary) hypertension; F31.9 Bipolar disorder, unspecified; F12.90 Cannabis use, unspecified, uncomplicated
CPT/HCPCS: 36415; 71045; 71275; 80053; 80306; 83735; 83874; 83880; 84484; 85025; 85379; 85610; 85730; 93005; 93041

== ENCOUNTER 2018-01-31 12:48 | Emergency (ER) | payer MEDICAID, MEDICARE ==
[~2018-01-31] VITALS: Ht 170.2 cm; Wt 79.4 kg
[~2018-01-31 12:48] MED LIST changes: -AMLO10TA2 PO; +AMLO10TA6 PO
[2018-01-31] MEDS ORDERED: AZITHROMYCIN 250 MG TAB (ZITHROMAX) PO SCH (13:00)
[2018-01-31] MEDS ORDERED: CEFTRIAXONE FOR IJ SCH (13:00)
--- NOTE | 2018-01-31 13:02 | ED GU-Male ---
General Stated Complaint: POSS STD EXPOSURE/WANTS TO BE TESTED Source: patient Exam Limitations: no limitations History of Present Illness Date Seen by Provider: Jan 31, 2018 Time Seen by Provider: 12:59 Initial Comments To ER with concerns of an STD. He states that he was at [facility] getting some medications filled recently and picked up a pamphlet on STDs which mentioned abdominal pain. He states that he has had off-and-on abdominal pain since 2013 and this worried him that maybe he has an STD. He denies any dysuria or testicular or penile pain. He states occasionally he gets sores in his mouth. He would like to be tested for HIV and other STDs. Past diagnoses of borderline personality disorder, paranoid schizophrenia, bipolar 1. Timing/Duration: constant Severity/Quality: moderate Location: periumbilical Activities at Onset: none Associated Symptoms: dysuria Allergies and Home Medications Allergies Coded Allergies: shellfish derived (Verified Allergy, Unknown, 08/18/16) Home Medications Amlodipine Besylate 10 Mg Tablet, 10 MG PO DAILY, (Reported) Aripiprazole 15 Mg Tablet, 15 MG PO DAILY, (Reported) Hydrochlorothiazide 25 Mg Tablet, 25 MG PO DAILY, (Reported) Metoprolol Tartrate 100 Mg Tablet, 100 MG PO BID, (Reported) LAST FILLED #60 01-23-17 Trazodone HCl 100 Mg Tablet, 100 MG PO HS, (Reported) LAST FILLED #30 01-23-17 Patient Home Medication List Home Medication List Reviewed: Yes Review of Systems Review of Systems Constitutional: see HPI; No chills, No fever EENTM: see HPI Respiratory: no symptoms reported Cardiovascular: no symptoms reported Gastrointestinal: abdominal pain Genitourinary: no symptoms reported Musculoskeletal: no symptoms reported Skin: no symptoms reported Psychiatric/Neurological: No Symptoms Reported Endocrine: No Symptoms Reported Hematologic/Lymphatic: No Symptoms Reported Past Wshffhl-Tsisuk-Bhkomx Hx Patient Social History Drug of Choice: METH 2nd Hand Smoke Exposure: No Recent Foreign Travel: No Contact w/Someone Who Travel: No Recent Hopitalizations: No Immunizations Up To Date Tetanus Booster (TDap): Unknown Seasonal Allergies Seasonal Allergies: No Past Medical History Surgeries: No Respiratory: No Cardiac: Yes Hypertension Neurological: No Reproductive Disorders: No Genitourinary: No Gastrointestinal: No Musculoskeletal: No Endocrine: No HEENT: No Cancer: No Psychosocial: Yes Bipolar, Depression Integumentary: No Blood Disorders: No Physical Exam Vital Signs Capillary Refill : Height, Weight, BMI Height: 5'6.00" Weight: 187lbs. 0.0oz. 84.994851ed; 27.9 BMI Method:Stated General Appearance: WD/WN, no apparent distress, other (he has trouble keeping a coherent train of thought. Conversation is rambling.) HEENT: PERRL/EOMI, normal ENT inspection, other (no oral pharyngeal lesions noted) Neck: non-tender, full range of motion Respiratory: normal breath sounds, no respiratory distress, no accessory muscle use Gastrointestinal: normal bowel sounds, non tender, other (diastases recti noted. Bowel sounds normal. Abdomen nontender.) Extremities: normal range of motion, non-tender Neurologic/Psychiatric: alert, oriented x 3, other (rambling conversation, indecisive) Skin: normal color, warm/dry Progress/Results/Core Measures Suspected Sepsis SIRS Temperature: Pulse: Respiratory Rate: Blood Pressure / Mean: Results/Orders My Orders Orders - ALLI PIZARRO APRN Ua Culture If Indicated (01/31/18 12:50) Ceftriaxone For Iv Use (Rocephin For I (01/31/18 13:00) Azithromycin Tablet (Zithromax Tablet) (01/31/18 13:00) Neis Jj Dna Urine Test (01/31/18 13:07) Chlamydia Trachomatis Urine (01/31/18 13:07) Drug Screen Stat (Urine) (01/31/18 13:07) Vital Signs/I&O Capillary Refill : Departure Communication (Admissions) I offered urine testing for gonorrhea and chlamydia and urinalysis. Patient declined stating he only wants the HIV test now. Advised him this would need to be done through primary care. He states he intends to leave here and go directly to [facility]. 1309- patient has once again changed his mind and would now like to have the chlamydia and gonorrhea urine test but does not want any treatment unless it comes back positive in a few days. 1324- patient has once again changed his mind and now no longer wants to provide urine sample. Impression Primary Impression: Potential exposure to STD Disposition: 01 HOME, SELF-CARE Condition: Stable Departure-Patient Inst. Decision time for Depature: 13:02 Referrals: [facility] (PCP/Family) Primary Care Physician Patient Instructions: STD Prevention Add. Discharge Instructions: 1. Follow-up with community health 2. Return to ER for any concerns 3. ALLI PIZARRO APRN Jan 31, 2018 13:02
[2018-01-31 13:24] VITALS: BP 199/129
[2018-02-13] MEDS ORDERED: AMLO10TA6 PO (10:51)
== END 2018-01-31 13:24 | disposition home or self-care (01) ==
LOC: EDUNIT# 12:48 → ER 12:49
DX: F20.0 Paranoid schizophrenia (principal); Z20.2 Contact with and (suspected) exposure to infections with a predominantly sexual mode of transmission; F31.9 Bipolar disorder, unspecified; F15.10 Other stimulant abuse, uncomplicated; I10 Essential (primary) hypertension
CPT/HCPCS: 99281

== ENCOUNTER 2018-02-12 16:26 | Observation (INO) | payer MEDICAID ==
[~2018-02-12] VITALS: Ht 170.2 cm; Wt 74.1 kg
[2018-02-12] MEDS ORDERED: IBUPROFEN 800 MG (MOTRIN) TAB PO ONE (16:45)
--- NOTE | 2018-02-12 16:48 | ED Psychosocial ---
General Chief Complaint: Psych/Social Disorder Stated Complaint: SUICIDAL Source: patient, EMS, spouse (via phone) Exam Limitations: no limitations (BOBO BOLDEN) History of Present Illness Date Seen by Provider: Feb 12, 2018 Time Seen by Provider: 16:21 Initial Comments The patient presents to ER by EMS with chief complaint of suicidal ideation. He says he's had suicidal ideation off and on for the past 2 years. He's had a couple suicide attempts by taking his own medications in the past. Today his plan was to jump out in front of a truck. He has a history of personality disorder and bipolar type I. He is been recently put on Seroquel but has not been taking it very routinely because he states it makes him sleep to soundly. He denies a history of insomnia. He is not having any nausea vomiting diarrhea fevers chills cough shortness of breath. He does have some occasional pain in his right hip that comes and goes for the past several years. He thinks he has arthritis in his hip. He typically takes aspirin or Tylenol for it with good effect but he has not had any today. He also has not taken any of his blood pressure medicines, metoprolol today. He says he's been does not always remember to take this either. EMS reports his blood pressure was quite elevated around 200 systolic when I got him but en route he got down to about 170. One beer today at 1300. Last snorted meth Friday, 5 days ago. Denies using we or any other illicit drugs recently. He states he has been inpatient psychiatric hospitalized one time after he took all of his home medicines many years ago at [facility]. He heard some good things about [facility] in [place] and would like to voluntarily go there to get help. He currently follows with [facility] for his medical and a psychiatrist at [place]. (BOBO BOLDEN) Allergies and Home Medications Allergies Coded Allergies: shellfish derived (Verified Allergy, Unknown, 08/18/16) Uncoded Allergies: CODIENE (Allergy, Severe, swelling/hives, 02/12/18) Home Medications Amlodipine Besylate 10 Mg Tablet, 10 MG PO DAILY, (Reported) Aripiprazole 15 Mg Tablet, 15 MG PO DAILY, (Reported) Hydrochlorothiazide 25 Mg Tablet, 25 MG PO DAILY, (Reported) Metoprolol Tartrate 100 Mg Tablet, 100 MG PO BID, (Reported) LAST FILLED #60 01-23-17 Trazodone HCl 100 Mg Tablet, 100 MG PO HS, (Reported) LAST FILLED #30 01-23-17 Patient Home Medication List Home Medication List Reviewed: Yes (BOBO BOLDEN) Review of Systems Constitutional: No chills, No diaphoresis, No fever, No malaise EENTM: No ear discharge, No ear pain Respiratory: No cough, No short of breath Cardiovascular: No chest pain, No edema Gastrointestinal: No abdominal pain, No constipation, No diarrhea Genitourinary: No discharge, No dysuria Musculoskeletal: No back pain; joint pain (right hip) (BOBO BOLDEN) Past Ujuvwtj-Mmkeji-Toxdhx Hx Patient Social History Alcohol Use: Regular Use Number of Drinks Today: 1 Alcohol Beverage of Choice: Beer Recreational Drug Use: Yes Drug of Choice: METH, WEED Smoking Status: Current Everyday Smoker 2nd Hand Smoke Exposure: No Recent Foreign Travel: No Contact w/Someone Who Travel: No Recent Hopitalizations: No (BOBO BOLDEN) Immunizations Up To Date Tetanus Booster (TDap): Unknown (BOBO BOLDEN) Seasonal Allergies Seasonal Allergies: No (BOBO BOLDEN) Past Medical History Surgeries: No Respiratory: No Cardiac: Yes Hypertension Neurological: No Reproductive Disorders: No Genitourinary: No Gastrointestinal: No Musculoskeletal: No Endocrine: No HEENT: No Cancer: No Psychosocial: Yes Bipolar, Depression Integumentary: No Blood Disorders: No (BOBO BOLDEN) Physical Exam Vital Signs - First Documented 02/12/18 16:26 Temp 98.0 Pulse 75 Resp 20 B/P (MAP) 171/120 (137) Pulse Ox 100 O2 Delivery Room Air (ANJUM MINER MD) Capillary Refill : (BOBO BOLDEN) Height, Weight, BMI Height: 5'7.00" Weight: 175lbs. 0.0oz. [id number]; 27.9 BMI Method:Stated General Appearance: WD/WN, no apparent distress HEENT: PERRL/EOMI, normal ENT inspection, pharynx normal Neck: non-tender, full range of motion Respiratory: no respiratory distress, no accessory muscle use Cardiovascular: normal peripheral pulses, regular rate, rhythm, no edema Gastrointestinal: non tender, soft Extremities: normal range of motion, non-tender (right hip and right knee), normal inspection, normal capillary refill Neurologic/Psychiatric: alert, oriented x 3, other (flat affect, suicidal ideation with plan.) Appearance/Memory: no memory impairment Behavior/Eye Contact: cooperative, normal speech, avoids eye contact Thoughts/Hallucinations: no apparent hallucination; No delusions, No paranoid Skin: normal color, warm/dry (YUAN,BOBO J) Progress/Results/Core Measures Results/Orders Lab Results Laboratory Tests Test 02/12/18 16:35 02/12/18 17:20 Range/Units Urine Color YELLOW Urine Clarity CLEAR Urine pH 7 5-9 Urine Specific [place] 1.015 L 1.016-1.022 Urine Protein 1+ H NEGATIVE Urine Glucose (UA) NEGATIVE NEGATIVE Urine Ketones NEGATIVE NEGATIVE Urine Nitrite NEGATIVE NEGATIVE Urine Bilirubin NEGATIVE NEGATIVE Urine Urobilinogen NORMAL NORMAL MG/DL Urine Leukocyte Esterase 1+ H NEGATIVE Urine RBC (Auto) NEGATIVE NEGATIVE Urine RBC RARE /HPF Urine WBC 0-2 /HPF Urine Squamous Epithelial Cells RARE /HPF Urine Crystals NONE /LPF Urine Bacteria NONE /HPF Urine Casts NONE /LPF Urine Mucus NEGATIVE /LPF Urine Culture Indicated NO Urine Opiates Screen NEGATIVE NEGATIVE Urine Oxycodone Screen NEGATIVE NEGATIVE Urine Methadone Screen NEGATIVE NEGATIVE Urine Propoxyphene Screen NEGATIVE NEGATIVE Urine Barbiturates Screen NEGATIVE NEGATIVE Ur Tricyclic Antidepressants Screen POSITIVE H NEGATIVE Urine Phencyclidine Screen NEGATIVE NEGATIVE Urine Amphetamines Screen NEGATIVE NEGATIVE Urine Methamphetamines Screen NEGATIVE NEGATIVE Urine Benzodiazepines Screen NEGATIVE NEGATIVE Urine Cocaine Screen NEGATIVE NEGATIVE Urine Cannabinoids Screen NEGATIVE NEGATIVE White Blood Count 6.7 4.3-11.0 10^3/uL Red Blood Count 4.89 4.35-5.85 10^6/uL Hemoglobin 13.9 13.3-17.7 G/DL Hematocrit 42 40-54 % Mean Corpuscular Volume 86 80-99 FL Mean Corpuscular Hemoglobin 28 25-34 PG Mean Corpuscular Hemoglobin Concent 33 32-36 G/DL Red Cell Distribution Width 15.8 H 10.0-14.5 % Platelet Count 323 130-400 10^3/uL Mean Platelet Volume 9.1 7.4-10.4 FL Neutrophils (%) (Auto) 53 42-75 % Lymphocytes (%) (Auto) 31 12-44 % Monocytes (%) (Auto) 13 H 0-12 % Eosinophils (%) (Auto) 3 0-10 % Basophils (%) (Auto) 0 0-10 % Neutrophils # (Auto) 3.6 1.8-7.8 X 10^3 Lymphocytes # (Auto) 2.1 1.0-4.0 X 10^3 Monocytes # (Auto) 0.8 0.0-1.0 X 10^3 Eosinophils # (Auto) 0.2 0.0-0.3 10^3/uL Basophils # (Auto) 0.0 0.0-0.1 10^3/uL Sodium Level 141 135-145 MMOL/L Potassium Level 3.6 3.6-5.0 MMOL/L Chloride Level 105 98-107 MMOL/L Carbon Dioxide Level 30 21-32 MMOL/L Anion Gap 6 5-14 MMOL/L Blood Urea Nitrogen 9 7-18 MG/DL Creatinine 1.10 0.60-1.30 MG/DL Estimat Glomerular Filtration Rate > 60 BUN/Creatinine Ratio 8 Glucose Level 83 70-105 MG/DL Calcium Level 9.3 8.5-10.1 MG/DL Corrected Calcium 9.6 8.5-10.1 MG/DL Total Bilirubin 0.4 0.1-1.0 MG/DL Aspartate Amino Transf (AST/SGOT) 19 5-34 U/L Alanine Aminotransferase (ALT/SGPT) 18 0-55 U/L Alkaline Phosphatase 68 40-136 U/L Total Protein 6.7 6.4-8.2 GM/DL Albumin 3.6 3.2-4.5 GM/DL Salicylates Level < 5.0 L 5.0-20.0 MG/DL Acetaminophen Level < 10 L 10-30 UG/ML Serum Alcohol < 10 <10 MG/DL (ANJUM MINER MD) Medications Given in ED Current Medications Medications Dose Ordered Sig/Rosibel Route Start Time Stop Time Status Last Admin Dose Admin Amlodipine Besylate 10 mg ONCE ONCE PO 02/12/18 18:30 02/12/18 18:31 DC 02/12/18 18:35 10 MG Ibuprofen 800 mg ONCE ONCE PO 02/12/18 16:45 02/12/18 16:46 DC 02/12/18 17:15 800 MG (ANJUM MINER MD) Vital Signs/I&O 02/12/18 02/12/18 16:26 18:20 Temp 98.0 Pulse 75 Resp 20 B/P (MAP) 171/120 (137) 164/105 (124) Pulse Ox 100 O2 Delivery Room Air (ANJUM MINER MD) Progress Progress Note #1: Time: 16:49 Progress Note His blood pressure still significantly elevated so we'll offer him 50 mg of Toprol succinate since he did not take it this morning and see how it does as he rests. We'll also give him 800 mg of ibuprofen for his chronic right hip pain. There does not appear to be acute injury associated with this pain. Progress Note #2: Time: 18:07 Progress Note Pt is comfortable and had a meal. Resting in bed without complaint. Pending Transfer to [facility] inpt Psych. Emperatriz Left VM at 1745 [place] Left at 1750; Linda called back at 1755. Dr masoud Browning at 1805. Discussed the case with Dr. Modi, psychiatry at [facility] and she would accept the patient but they're criteria is at the blood pressure has to be below 170/90. Presently the patient's blood pressure 161/110. He has received metoprolol succinate 50 mg. He is asymptomatic. We discussed that rapid lowering of the blood pressure is probably not a good idea and that instead it should be brought down over days to weeks. Dr. Modi agrees to accept the patient when his blood pressure is below 170/90. I discussed this with Dr. Miner and we agree that this will probably not happen in the ER so were going to pursue an observation status and reattempt admission in the morning. (BOBO BOLDEN) Progress Note : Progress Note 1830: [facility] has called back and has concerns about his blood pressure. Repeat blood pressure shows him to be 160s over 110s. This is after metoprolol. Patient has been off his blood pressure medicine for a while and this will likely take some time to get his blood pressure and more stable range. I discussed the case with Dr. Celestin at 1822 and she accepts patient for admission, observation status. We'll add amlodipine 10 mg to the 50 mg of Toprol-XL that we have already given. We'll continue that. Patient will be admitted overnight for observation with the anticipation that he can go to psychiatric facility tomorrow. 7: I discussed the case with the group at [facility] in [facility]. Patient really wants to go to [facility]. They also have concerns about his blood pressure but will keep his paperwork and chart with the anticipation that we will call back in the morning with improved blood pressure results and for the possibility of transfer to them. At this point it looks like he is a good candidate for their services. Patient does have hip pain as well. We will give Tylenol and ibuprofen as needed for pain control. This hip pain appears to be chronic. Admit, observation status. Patient agrees with plan. (ANJUM MINER MD) Initial ECG Impression Date: Feb 12, 2018 Initial ECG Impression Time: 17:05 Initial ECG Rate: 68 Initial ECG Rhythm: Normal Sinus Initial ECG Intervals: Normal Initial ECG Impression: Normal, Nonspecific Changes Initial ECG Comparisson: No Previous ECG Available Comment No ST elevation or depression. Some movement artifact noted. (BOBO BOLDEN) Transfer of Care Time: 18:10 Care transferred to: Dr Miner (BOBO BOLDEN) Departure Communication (Admissions) Time/Spoke to Admitting Phy: 18:22 (ANJUM MINER MD) Impression Primary Impression: Labile hypertension Additional Impressions: Suicidal ideation Chronic right hip pain History of methamphetamine abuse Disposition: 09 ADMITTED INPATIENT Condition: Stable Admissions Decision to Admit Reason: Admit from ER (General) Decision to Admit/Date: Feb 12, 2018 Time/Decision to Admit Time: 18:22 (ANJUM MINER MD) Departure-Patient Inst. Referrals: [facility] (PCP/Family) Primary Care Physician Copy Copies To 1: CHIKIS CHILDERS TITUS J Feb 12, 2018 16:48 ANJUM MINER MD Feb 12, 2018 18:50
[2018-02-12 16:49] LABS: BILIRUBIN,URINE NEGATIVE (NEGATIVE); CLARITY,URINE CLEAR; COLOR,URINE YELLOW; GLUCOSE, URINE (UA) NEGATIVE (NEGATIVE); KETONES,URINE NEGATIVE (NEGATIVE); LEUKOCYTE ESTERASE ,URINE 1+ (NEGATIVE); NITRITE,URINE NEGATIVE (NEGATIVE); PH,URINE 7 (5-9); PROTEIN,URINE 1+ (NEGATIVE); UROBILINOGEN,URINE NORMAL (NORMAL)
[2018-02-12 16:58] LABS: RBC,URINE RARE /HPF; SQUAMOUS EPITHELIAL CELL,UR RARE /HPF; WBC,URINE 0-2 /HPF
[2018-02-12 17:26] LABS: BASOPHILS % (AUTO) 0 % (0-10); EOSINOPHILS # (AUTO) 0.2 10^3/uL (0.0-0.3); EOSINOPHILS % (AUTO) 3 % (0-10); HEMATOCRIT 42 % (40-54); HEMOGLOBIN 13.9 G/DL (13.3-17.7); LYMPHOCYTES # (AUTO) 2.1 X 10^3 (1.0-4.0); LYMPHOCYTES % (AUTO) 31 % (12-44); MEAN CORPUSCULAR HEMOGLOBIN 28 PG (25-34); MEAN CORPUSCULAR HGB CONC 33 G/DL (32-36); MEAN CORPUSCULAR VOLUME 86 FL (80-99); MEAN PLATELET VOLUME 9.1 FL (7.4-10.4); MONOCYTES # (AUTO) 0.8 X 10^3 (0.0-1.0); MONOCYTES % (AUTO) 13 % (0-12); NEUTROPHILS # (AUTO) 3.6 X 10^3 (1.8-7.8); NEUTROPHILS % (AUTO) 53 % (42-75); PLATELET COUNT 323 10^3/uL (130-400); RED BLOOD COUNT 4.89 10^6/uL (4.35-5.85); RED CELL DISTRIBUTION WIDTH 15.8 % (10.0-14.5); WHITE BLOOD COUNT 6.7 10^3/uL (4.3-11.0)
[2018-02-12 17:45] LABS: ALANINE AMINOTRANSFERASE 18 U/L (0-55); ALBUMIN 3.6 GM/DL (3.2-4.5); ALKALINE PHOSPHATASE 68 U/L (40-136); BILIRUBIN,TOTAL 0.4 MG/DL (0.1-1.0); BUN/CREATININE RATIO 8; CALCIUM 9.3 MG/DL (8.5-10.1); CARBON DIOXIDE 30 MMOL/L (21-32); CHLORIDE 105 MMOL/L (98-107); GFR ESTIMATED > 60; GLUCOSE 83 MG/DL (70-105); POTASSIUM 3.6 MMOL/L (3.6-5.0); SALICYLATE < 5.0 MG/DL (5.0-20.0); SODIUM 141 MMOL/L (135-145); TOTAL PROTEIN 6.7 GM/DL (6.4-8.2)
[2018-02-12] MEDS ORDERED: meTOproloL SUCCINATE 50 MG (TOPROL XL) TAB PO SCH (17:45)
[2018-02-12 17:48] LABS: ACETAMINOPHEN < 10 UG/ML (10-30)
[2018-02-12 18:00] LABS: AMPHETAMINE SCREEN, URINE NEGATIVE (NEGATIVE); BARBITURATE SCREEN URINE NEGATIVE (NEGATIVE); BENZODIAZEPINES SCREEN URINE NEGATIVE (NEGATIVE); CANNABINOID SCREEN, URINE NEGATIVE (NEGATIVE); COCAINE SCREEN URINE NEGATIVE (NEGATIVE); METHADONE STAT NEGATIVE (NEGATIVE); METHAMPHETAMINE SCREEN URINE S NEGATIVE (NEGATIVE); OPIATE SCREEN URINE NEGATIVE (NEGATIVE); OXYCODONE STAT NEGATIVE (NEGATIVE); PROPOXYPHENE STAT NEGATIVE (NEGATIVE); TRICYCLIC ANTIDEPRESSANTS SCRE POSITIVE (NEGATIVE)
[2018-02-12 18:20] VITALS: BP 164/105
[2018-02-12] MEDS ORDERED: amLODIPine 10 MG (NORVASC) TAB PO ONE (18:30)
[2018-02-12 20:15] VITALS: BP 162/108
[2018-02-12] MEDS ORDERED: IBUPROFEN 600 MG (MOTRIN) TAB PO PRN (21:30)
[2018-02-12] MEDS ORDERED: ACETAMINOPHEN 500 MG TAB (TYLENOL) PO PRN (21:30)
[2018-02-12 23:52] VITALS: BP 152/98
[2018-02-13] MEDS ORDERED: ZOLPIDEM 5 MG (AMBIEN) TAB ONE (02:54)
[2018-02-13] MEDS ORDERED: ZOLPIDEM 5 MG (AMBIEN) TAB PO ONE (03:00)
[2018-02-13 03:40] VITALS: BP 151/94
[2018-02-13 08:00] VITALS: BP 178/91
[2018-02-13] MEDS ORDERED: FLU QUADRIvalent (5+ YOA) 2018-2019 (AFLURIA) 0.5 ML IM ONE (08:00)
[2018-02-13] MEDS ORDERED: meTOproloL SUCCINATE 50 MG (TOPROL XL) TAB PO SCH (09:00)
[2018-02-13] MEDS ORDERED: amLODIPine 10 MG (NORVASC) TAB PO SCH (09:00)
[2018-02-13] MEDS ORDERED: QUET200T PO (09:36)
[2018-02-13] MEDS ORDERED: AMLO10TA6 PO (10:51)
[2018-02-13 12:00] VITALS: BP 142/95
[2018-02-13 12:40] VITALS: BP 142/95
[2018-02-14] MEDS ORDERED: meTOprolol SUCCINATE 100 MG (TOPROL XL) TAB PO SCH (09:00)
--- NOTE | 2018-02-15 15:19 | Short Stay Summary ---
History of Present Illness History of Present Illness Reason for visit/HPI 42 yo male came ot ER due to suicidal ideation. The plan was for admission to inpatient psychiatry, but his blood pressure was markedly elevated and the psych facility wanted his blood pressure to be better before acceping. He states he has been out of BP meds for a few weeks. Denies headache or chest pain. Date of Admission Feb 12, 2018 at 18:30 Date of Discharge Feb 13, 2018 at 12:40 Time Seen by Provider: 10:00 Attending Physician Garth Celestin MD Admitting Physician [place] Consult Allergies and Home Medications Allergies Coded Allergies: shellfish derived (Verified Allergy, Unknown, 08/18/16) Uncoded Allergies: CODIENE (Allergy, Severe, swelling/hives, 02/12/18) Home Medications Amlodipine Besylate 10 Mg Tablet, 10 MG PO DAILY Prescribed by: GARTH CELESTIN on 02/13/18 1051 Metoprolol Tartrate 100 Mg Tablet, 100 MG PO BID, (Reported) LAST FILLED #28 12-25-17 Quetiapine Fumarate 200 Mg Tablet, 200 MG PO HS, (Reported) Patient Home Medication List Home Medication List Reviewed: Yes Past Sqrabwv-Dpnvrx-Pyoqyo Hx Patient Social History Alcohol Use: Regular Use Number of Drinks Today: AA Alcohol Beverage of Choice: Beer Recreational Drug Use: Yes Drug of Choice: METH, WEED Smoking Status: Current Everyday Smoker 2nd Hand Smoke Exposure: No Physical Abuse Screen: No Sexual Abuse: No Recent Foreign Travel: No Contact w/other who traveled: No Recent Hopitalizations: No Recent Infectious Disease Expo: No Immunizations Up To Date Tetanus Booster (TDap): Unknown Seasonal Allergies Seasonal Allergies: No Surgeries No Respiratory No Cardiovascular Yes Hypertension Neurological No Reproductive System Hx Reproductive Disorders: No Genitourinary No Gastrointestinal No Musculoskeletal No Endocrine History of Endocrine Disorders: No HEENT History of HEENT Disorders: No Cancer No Psychosocial History of Psychiatric Problem: Yes (SCHIZOPERSONALITY, DEPRESSION) Behavioral Health Disorders: Suicide Attempts, Bipolar, Personality Disorder, Depression Integumentary History of Skin or Integumenta: No Blood Transfusions History of Blood Disorders: No Review of Systems Constitutional: No fever EENTM: no symptoms reported Respiratory: No short of breath Cardiovascular: No chest pain Gastrointestinal: No abdominal pain, No constipation, No diarrhea, No nausea, No other Genitourinary: no symptoms reported Musculoskeletal: no symptoms reported Skin: no symptoms reported Psychiatric/Neurological: See HPI Physical Exam Vital Signs Vital Signs - First Documented 02/12/18 16:26 Temp 98.0 Pulse 75 Resp 20 B/P (MAP) 171/120 (137) Pulse Ox 100 O2 Delivery Room Air Capillary Refill : Less Than 3 SecondsLess Than 3 Seconds Height, Weight, BMI Height: 5'7.00" Weight: 163lbs. 5.0oz. [id number]; 25.6 BMI Method:Actual General Appearance: No Apparent Distress, WD/WN Respiratory: Lungs Clear, Normal Breath Sounds Cardiovascular: Regular Rate, Rhythm, No Murmur Gastrointestinal: Normal Bowel Sounds, Non Tender, Soft Extremity: No Pedal Edema Neurologic/Psychiatric: Alert, No Motor/Sensory Deficits Skin: Normal Color, Warm/Dry Clinical Quality Measures DVT/VTE Risk/Contraindication: Risk Factor Score Per Nursin RFS Level Per Nursing on Admit: 2=Moderate Short Stay Diagnosis Discharge Diagnosis-Short Stay Admission Diagnosis: Suicidal ideation Severe hypertension Final Discharge Diagnosis: Suicidal ideation- transferred to inpatient Psych facility Severe hypertension- asymptomatic, no end organ damage per labs, improved with amlodipine and increased dose of metoprolol. Conclusion Conclusion/Plan See discharge diagnosis GARTH CELESTIN MD Feb 15, 2018 15:19
== END 2018-02-13 12:40 ==
LOC: EDUNIT# 16:26 → ER 16:26 → 4TH 18:30 → UNDOADMOB 18:30 → 4TH 20:15 → UNDODISOB 02-13 12:40
PROVIDERS: ADMIT Family Medicine; ATTEND Family Medicine
DX: R45.851 Suicidal ideations (principal); I10 Essential (primary) hypertension; F31.9 Bipolar disorder, unspecified; F60.9 Personality disorder, unspecified; F15.10 Other stimulant abuse, uncomplicated; M25.551 Pain in right hip; Z79.899 Other long term (current) drug therapy
CPT/HCPCS: 36415; 80053; 80306; 80320; 80329; 81000; 85025; 93005

== ENCOUNTER 2018-02-20 02:27 | Emergency (ER) | payer MEDICAID ==
[~2018-02-20] VITALS: Ht 170.2 cm; Wt 73.9 kg
[~2018-02-20 02:27] MED LIST changes: +QUET200T PO
--- NOTE | 2018-02-20 03:33 | ED Psychosocial ---
General Chief Complaint: Psych/Social Disorder Stated Complaint: MENTAL HEALTH EVAL Source: patient, police Exam Limitations: no limitations (BOBO STAFFORD) History of Present Illness Date Seen by Provider: Feb 20, 2018 Time Seen by Provider: 03:16 Initial Comments Patient presents the ER by police custody after he called the police saying he wanted to kill himself and was holding a knife to his neck. These they talked him down and state that they know him well. He has a history of mental health issues. Patient states recently 3 weeks ago he had his Seroquel stopped because is making him sleepy and they wrote him for a new medicine but he never started taking it. He's having depression and suicidal thoughts tonight with plan to stab himself but he did not actually cut or harm himself. In the past he has had self-harm behaviors with cutting his forearms. He also has had suicide attempt by lithium overdose. He is known to inpatient psychiatric hospitals at [place] as well as [facility] in [place], [place]. He says he wants to get help and is voluntary to go inpatient today. He says he is still suicidal. He does not want to go into detail as to what has led him to be more suicidal tonight. He states in the past few weeks he did snort some methamphetamine but none recently. He had some alcohol earlier in the night and also denies smoking. He says he been taking the rest of his blood pressure medicines routinely. He is not really sure what all the names or doses of his medicines are. He states that last night he took half a tablet of Seroquel. (BOBO STAFFORD) Allergies and Home Medications Allergies Coded Allergies: shellfish derived (Verified Allergy, Unknown, 08/18/16) Uncoded Allergies: CODIENE (Allergy, Severe, swelling/hives, 02/12/18) Home Medications Amlodipine Besylate 10 Mg Tablet, 10 MG PO DAILY Prescribed by: GARTH BE on 02/13/18 1051 Metoprolol Tartrate 100 Mg Tablet, 100 MG PO BID, (Reported) LAST FILLED #28 12-25-17 Quetiapine Fumarate 200 Mg Tablet, 200 MG PO HS, (Reported) Patient Home Medication List Home Medication List Reviewed: Yes (BOBO STAFFORD) Review of Systems Constitutional: No chills, No diaphoresis, No fever EENTM: No ear pain, No eye pain Respiratory: No cough, No short of breath Cardiovascular: No chest pain, No palpitations Gastrointestinal: No abdominal pain, No nausea Genitourinary: No discharge, No dysuria Musculoskeletal: No back pain, No joint pain Skin: No pruritus, No rash Psychiatric/Neurological: Denies Headache, Denies Numbness, Denies Paresthesia (BOBO STAFFORD) Past Lrbtriv-Jwxzjg-[id number] Hx Patient Social History Alcohol Use: Occasionally Uses Alcohol Beverage of Choice: Beer Recreational Drug Use: Yes Drug of Choice: METH, WEED Smoking Status: Never a Smoker 2nd Hand Smoke Exposure: No Recent Foreign Travel: No Contact w/Someone Who Travel: No Recent Hopitalizations: No (BOBO STAFFORD) Immunizations Up To Date Tetanus Booster (TDap): Unknown (BOBO STAFFORD) Seasonal Allergies Seasonal Allergies: No (BOBO STAFFORD) Past Medical History Surgeries: No Respiratory: No Cardiac: Yes Hypertension Neurological: No Reproductive Disorders: No Genitourinary: No Gastrointestinal: No Musculoskeletal: No Endocrine: No HEENT: No Cancer: No Psychosocial: Yes (SCHIZOPERSONALITY, DEPRESSION) Suicide Attempts, Bipolar, Personality Disorder, Depression Integumentary: No Blood Disorders: No (BOBO STAFFORD) Physical Exam Vital Signs - First Documented 02/20/18 02:51 Temp 97.8 Pulse 108 Resp 18 B/P (MAP) 166/109 (128) Pulse Ox 97 O2 Delivery Room Air (ANJUM MINER MD) Capillary Refill : (BOBO SATFFORD) Height, Weight, BMI Height: 5'7.00" Weight: 163lbs. 5.0oz. [id number]; 25.6 BMI Method:Actual General Appearance: WD/WN, no apparent distress HEENT: PERRL/EOMI, pharynx normal Respiratory: lungs clear, normal breath sounds, no respiratory distress, no accessory muscle use Cardiovascular: normal peripheral pulses, regular rate, rhythm Peripheral Pulses: 2+ Radial Pulses (R), 2+ Radial Pulses (L) Gastrointestinal: normal bowel sounds, non tender, soft Extremities: normal range of motion, normal inspection, normal capillary refill Neurologic/Psychiatric: alert, normal mood/affect, oriented x 3 Appearance/Memory: no memory impairment Behavior/Eye Contact: cooperative, normal speech, avoids eye contact, other ( flat affect) Thoughts/Hallucinations: no apparent hallucination; No delusions Skin: normal color, warm/dry (BOBO STAFFORD) Progress/Results/Core Measures Results/Orders Lab Results Laboratory Tests Test 02/20/18 03:28 02/20/18 05:32 02/20/18 06:40 Range/Units White Blood Count 10.6 4.3-11.0 10^3/uL Red Blood Count 4.83 4.35-5.85 10^6/uL Hemoglobin 13.7 13.3-17.7 G/DL Hematocrit 41 40-54 % Mean Corpuscular Volume 84 80-99 FL Mean Corpuscular Hemoglobin 28 25-34 PG Mean Corpuscular Hemoglobin Concent 34 32-36 G/DL Red Cell Distribution Width 16.5 H 10.0-14.5 % Platelet Count 298 130-400 10^3/uL Mean Platelet Volume 9.1 7.4-10.4 FL Neutrophils (%) (Auto) 63 42-75 % Lymphocytes (%) (Auto) 22 12-44 % Monocytes (%) (Auto) 13 H 0-12 % Eosinophils (%) (Auto) 1 0-10 % Basophils (%) (Auto) 0 0-10 % Neutrophils # (Auto) 6.7 1.8-7.8 X 10^3 Lymphocytes # (Auto) 2.4 1.0-4.0 X 10^3 Monocytes # (Auto) 1.4 H 0.0-1.0 X 10^3 Eosinophils # (Auto) 0.2 0.0-0.3 10^3/uL Basophils # (Auto) 0.0 0.0-0.1 10^3/uL Sodium Level 139 135-145 MMOL/L Potassium Level 3.8 3.6-5.0 MMOL/L Chloride Level 107 98-107 MMOL/L Carbon Dioxide Level 21 21-32 MMOL/L Anion Gap 11 5-14 MMOL/L Blood Urea Nitrogen 18 7-18 MG/DL Creatinine 1.09 0.60-1.30 MG/DL Estimat Glomerular Filtration Rate > 60 BUN/Creatinine Ratio 17 Glucose Level 108 H 70-105 MG/DL Calcium Level 9.1 8.5-10.1 MG/DL Corrected Calcium 9.3 8.5-10.1 MG/DL Total Bilirubin 0.5 0.1-1.0 MG/DL Aspartate Amino Transf (AST/SGOT) 112 H 5-34 U/L Alanine Aminotransferase (ALT/SGPT) 42 0-55 U/L Alkaline Phosphatase 76 40-136 U/L Total Protein 7.1 6.4-8.2 GM/DL Albumin 3.8 3.2-4.5 GM/DL TSH Harding Testing 0.99 0.35-4.94 UIU/ML Salicylates Level < 5.0 L 5.0-20.0 MG/DL Acetaminophen Level < 10 L 10-30 UG/ML Serum Alcohol < 10 <10 MG/DL Urine Color YELLOW Urine Clarity CLEAR Urine pH 5 5-9 Urine Specific [place] 1.025 H 1.016-1.022 Urine Protein 2+ H NEGATIVE Urine Glucose (UA) NEGATIVE NEGATIVE Urine Ketones 1+ H NEGATIVE Urine Nitrite NEGATIVE NEGATIVE Urine Bilirubin NEGATIVE NEGATIVE Urine Urobilinogen 1 NORMAL MG/DL Urine Leukocyte Esterase 1+ H NEGATIVE Urine RBC (Auto) 4+ H NEGATIVE Urine RBC 10-25 H /HPF Urine WBC 2-5 /HPF Urine Squamous Epithelial Cells 10-25 H /HPF Urine Crystals NONE /LPF Urine Bacteria NEGATIVE /HPF Urine Casts PRESENT /LPF Urine Hyaline Casts 2-5 H /LPF Urine Mucus LARGE H /LPF Urine Other LG SPERM H /HPF Urine Culture Indicated NO Urine Opiates Screen NEGATIVE NEGATIVE Urine Oxycodone Screen NEGATIVE NEGATIVE Urine Methadone Screen NEGATIVE NEGATIVE Urine Propoxyphene Screen NEGATIVE NEGATIVE Urine Barbiturates Screen NEGATIVE NEGATIVE Ur Tricyclic Antidepressants Screen POSITIVE H NEGATIVE Urine Phencyclidine Screen NEGATIVE NEGATIVE Urine Amphetamines Screen POSITIVE H NEGATIVE Urine Methamphetamines Screen POSITIVE H NEGATIVE Urine Benzodiazepines Screen NEGATIVE NEGATIVE Urine Cocaine Screen NEGATIVE NEGATIVE Urine Cannabinoids Screen NEGATIVE NEGATIVE Total Creatine Kinase 6828 H 30-200 U/L (ANJUM MINER MD) My Orders Orders - ANJUM MINER MD Ns Iv 1000 Ml (Sodium Chloride 0.9%) (02/20/18 08:19) (ANJUM MINER MD) Medications Given in ED Current Medications Medications Dose Ordered Sig/Rosibel Route Start Time Stop Time Status Last Admin Dose Admin Sodium Chloride 1,000 ml @ 0 mls/hr Q0M ONCE IV 02/20/18 08:19 02/20/18 08:20 DC 02/20/18 08:25 1,000 MLS/HR (ANJUM MINER MD) Vital Signs/I&O 02/20/18 02:51 Temp 97.8 Pulse 108 Resp 18 B/P (MAP) 166/109 (128) Pulse Ox 97 O2 Delivery Room Air (ANJUM MINER MD) Progress Progress Note #1: Time: 03:34 Progress Note Patient has had a history in the past of malignant hypertension. His blood pressures up today. He does appear to be having some jerking motion like he may have easily used illicit substances. His tachycardia could be from dehydration although clinically he does not appear to be very dry. We'll get some urine from him. We have offered him something to eat. We'll do workup with blood, urine, urine drug screen, EKG. We've offered to do an IV and some fluids but he thinks he can just drink some fluids so we'll start there. Given 100 mg of metoprolol tartrate now to help with his hypertension and tachycardia however it is meth induced then Ativan would be more appropriate choice. I suspect he may not be as fastidious about taking his medications as he states that he is. Progress Note #2: Time: 06:14 Progress Note Patient's had something to eat as well as slept most of his stay here. Initial vital signs have improved and are now 116/68, respiration 16, heart rate 84 and oxygen saturation 98% on room air. He declined the oral metoprolol so we established an IV and gave him some IV fluids to help the tachycardia. We are going to give IV metoprolol but since his blood pressure has calmed down we have held that. Urine drug screens positive for methamphetamines which he initially denied recent use. He is denying any pain or discomfort. During his stay he has not required any antianxiety, antipsychotics. (BOBO STAFFORD) Progress Note : Progress Note Care transferred from Dr. Stafford 0615. He has spoken with [facility] in [place], [place] and they will accept him but they have asked for additional laboratory. Total CK was requested and this will be ordered. Patient is resting comfortably. Monitor patient. 0830: Total CK complete and noted to be at 6800. Second liter of normal saline has been initiated. We are evaluating for bed space as this hospital is full. 0900: I did discuss with [facility] in [facility] and they have no medical beds available. Patient still reports suicidal ideations and will need medical clearance prior to psychiatric admission. He still is requesting voluntary admission to psychiatric unit when medically cleared. 0937: I contacted [facility] and an pending call back. 0942: I have discussed the case with Dr. Loco at [facility]. Case reviewed including the elevated total CK and concerns of rhabdomyolysis as well as the suicidal ideation concerns. She is accepted the patient for transfer to their hospital and we're pending a bed assignment. All of this was discussed with the patient as well. He actually has requested [facility] for his psychiatric treatment and is appreciative of the transfer there for the medical clearance and psychiatric care if possible. Current blood pressure is 112/76 with heart rate of 76 and O2 sat are 99 percent on room air with respiratory rate of 18. He is resting comfortably without complaint. (ANJUM MINER MD) Initial ECG Impression Date: Feb 20, 2018 Initial ECG Impression Time: 03:14 Initial ECG Rate: 121 Initial ECG Rhythm: S.Tach Initial ECG Intervals: Normal Initial ECG Impression: Normal, Nonspecific Changes Initial ECG Comparisson: Unchanged Comment Sinus tachycardia with left axis deviation. No ST elevation or depression. (BOBO STAFFORD) Departure Impression Primary Impression: Rhabdomyolysis Qualified Codes: M62.82 - Rhabdomyolysis Additional Impressions: Suicidal ideation Methamphetamine abuse Disposition: XFER SHT-TRM HOSP Condition: Stable Transfer Time Spoke to Accepting Phy: 06:15 Transfer Progress Notes Vinnie: Dr. Modi discussed case, lab, findings and she agrees to accept the patient. She would like a CK, EKG and affadavit. Transfer Facility: [place], [place] (BOBO STAFFORD) Time Spoke to Accepting Phy: 09:42 Transfer Facility: [place], [place], Dr. Loco accepting. Method of Transfer: EMS (ANJUM MINER MD) Departure-Patient Inst. Referrals: [facility] (PCP/Family) Primary Care Physician Copy Copies To 1: CHILDERS,CHIKIS BOBO SAMPSON Feb 20, 2018 03:33 ANJUM MINER MD Feb 20, 2018 10:13
[2018-02-20 03:41] LABS: BASOPHILS % (AUTO) 0 % (0-10); EOSINOPHILS # (AUTO) 0.2 10^3/uL (0.0-0.3); EOSINOPHILS % (AUTO) 1 % (0-10); HEMATOCRIT 41 % (40-54); HEMOGLOBIN 13.7 G/DL (13.3-17.7); LYMPHOCYTES # (AUTO) 2.4 X 10^3 (1.0-4.0); LYMPHOCYTES % (AUTO) 22 % (12-44); MEAN CORPUSCULAR HEMOGLOBIN 28 PG (25-34); MEAN CORPUSCULAR HGB CONC 34 G/DL (32-36); MEAN CORPUSCULAR VOLUME 84 FL (80-99); MEAN PLATELET VOLUME 9.1 FL (7.4-10.4); MONOCYTES # (AUTO) 1.4 X 10^3 (0.0-1.0); MONOCYTES % (AUTO) 13 % (0-12); NEUTROPHILS # (AUTO) 6.7 X 10^3 (1.8-7.8); NEUTROPHILS % (AUTO) 63 % (42-75); PLATELET COUNT 298 10^3/uL (130-400); RED BLOOD COUNT 4.83 10^6/uL (4.35-5.85); RED CELL DISTRIBUTION WIDTH 16.5 % (10.0-14.5); WHITE BLOOD COUNT 10.6 10^3/uL (4.3-11.0)
[2018-02-20] MEDS ORDERED: meTOprolol TARTRATE 50 MG (LOPRESSOR) TAB PO ONE (03:45)
[2018-02-20 04:00] LABS: ALANINE AMINOTRANSFERASE 42 U/L (0-55); ALBUMIN 3.8 GM/DL (3.2-4.5); ALKALINE PHOSPHATASE 76 U/L (40-136); BILIRUBIN,TOTAL 0.5 MG/DL (0.1-1.0); BUN/CREATININE RATIO 17; CALCIUM 9.1 MG/DL (8.5-10.1); CARBON DIOXIDE 21 MMOL/L (21-32); CHLORIDE 107 MMOL/L (98-107); CREATININE SERUM 1.09 MG/DL (0.60-1.30); GFR ESTIMATED > 60; GLUCOSE 108 MG/DL (70-105); POTASSIUM 3.8 MMOL/L (3.6-5.0); SALICYLATE < 5.0 MG/DL (5.0-20.0); SODIUM 139 MMOL/L (135-145); TOTAL PROTEIN 7.1 GM/DL (6.4-8.2)
[2018-02-20 04:05] LABS: ACETAMINOPHEN < 10 UG/ML (10-30)
[2018-02-20] MEDS ORDERED: NS IV 1000 ML 1,000 ML IV SCH ×2 (04:46→10:15)
[2018-02-20] MEDS ORDERED: meTOprolol 5 MG/5 ML (LOPRESSOR) VIAL IV ONE (05:00)
[2018-02-20 05:40] LABS: BILIRUBIN,URINE NEGATIVE (NEGATIVE); CLARITY,URINE CLEAR; COLOR,URINE YELLOW; GLUCOSE, URINE (UA) NEGATIVE (NEGATIVE); KETONES,URINE 1+ (NEGATIVE); LEUKOCYTE ESTERASE ,URINE 1+ (NEGATIVE); NITRITE,URINE NEGATIVE (NEGATIVE); PH,URINE 5 (5-9); PROTEIN,URINE 2+ (NEGATIVE); UROBILINOGEN,URINE 1 MG/DL (NORMAL)
[2018-02-20 05:53] LABS: AMPHETAMINE SCREEN, URINE POSITIVE (NEGATIVE); BACTERIA,URINE NEGATIVE /HPF; BARBITURATE SCREEN URINE NEGATIVE (NEGATIVE); BENZODIAZEPINES SCREEN URINE NEGATIVE (NEGATIVE); CANNABINOID SCREEN, URINE NEGATIVE (NEGATIVE); COCAINE SCREEN URINE NEGATIVE (NEGATIVE); METHADONE STAT NEGATIVE (NEGATIVE); METHAMPHETAMINE SCREEN URINE S POSITIVE (NEGATIVE); OPIATE SCREEN URINE NEGATIVE (NEGATIVE); OXYCODONE STAT NEGATIVE (NEGATIVE); PROPOXYPHENE STAT NEGATIVE (NEGATIVE); TRICYCLIC ANTIDEPRESSANTS SCRE POSITIVE (NEGATIVE)
[2018-02-20 05:54] LABS: URINE OTHER LG SPERM /HPF
[2018-02-20] MEDS ORDERED: NS IV 1000 ML 1,000 ML IV ONE (08:19)
[2018-02-20 11:00] VITALS: BP 134/89
== END 2018-02-20 11:07 | disposition short-term general hospital (02) ==
LOC: EDUNIT# 02:27 → ER 02:30
DX: M62.82 Rhabdomyolysis (principal); R45.851 Suicidal ideations; F15.10 Other stimulant abuse, uncomplicated; I10 Essential (primary) hypertension; F20.9 Schizophrenia, unspecified; F31.9 Bipolar disorder, unspecified; F12.10 Cannabis abuse, uncomplicated; Z91.5 Personal history of self-harm; Z88.5 Allergy status to narcotic agent
CPT/HCPCS: 36415; 80053; 80306; 80320; 80329; 81000; 82550; 84443; 85025; 93005